=== PATIENT | male | born 1995 | race Caucasian/White ===

== ENCOUNTER 2020-06-12 13:44 | Emergency (ER) | payer BC, SELFPAY ==
[2020-06-12 13:46] VITALS: BP 160/89; PULSE 112; RESP 18; TEMP 36.6; O2SAT 97; BMI 32.7
--- NOTE | 2020-06-12 13:55 | ED.RN ---
pt in 1:1 continuous observation in triage awaiting ED room availability
--- NOTE | 2020-06-12 14:56 | ED.DCSUM_ITS ---
- ER Visit Summary Date of Service: 06/12/20 Chief Complaint: Depression with suicidal ideation History of Present Illness: The patient is a 24 M who presents with depression and suicidal ideation that has been getting progressively worse. Patient states he has been depressed over the last 4 years. Patient states his suicidal ideations became worse today. Patient states he wants to hurt other people so that they will hurt him and kill him. Patient states nothing particularly made this worse or made it better. Physical Examination: Vital signs are stable. Patient is afebrile. Patient is in no acute distress. Oral mucosa is pink and moist. Neck is supple. Trachea is midline. There is no JVD noted. Heart was regular rate and rhythm. Lungs are clear and equal bilaterally. Abdomen is soft. Bowel sounds are normal. There is no tenderness. There is no rebound or guarding noted. Skin is warm dry. Cranial nerves II through XII are intact. There are no focal motor or sensory deficits noted. Extremities are intact. There is no calf tenderness or edema. Patient does have a depressed mood and flat affect. Patient admits to suicidal ideation. Test Results: CBC shows a slight leukocytosis of 13.0. Basic metabolic profile was within normal limits. Serum alcohol level was normal. Urine tox urine was positive for amphetamines and cannabinoids. Emergency Department Course and Treatment: Patient was given a dose of Geodon here. Social work was in to evaluate the patient. Patient will be placed in a psychiatric facility. [place] slip was filled out. Patient will be transferred to [place]. Patient understood and was agreeable with the plan. All questions were answered. Disposition: Transfer to psychiatric facility Impression: Depression with suicidal ideation This note was generated with [employer] dictation software. It may contain incorrect words, spelling, and punctuation that were not noted in review of the chart prior to signing ED Disposition - Plan for ED Patient: Disposition: Psychiatric Hospital or Unit Diagnosis: Depression with suicidal ideation
[2020-06-12 15:04] LABS: Absolute Lymphocyte Count 2.62 X10^3/uL (0.83-4.51); Absolute Neutrophil Count 8.8 X10^3/uL (2.0-7.7); Basophil# 0.07 X10^3/uL; Basophil% 0.5 % (0-1); Eosinophil# 0.32 X10^3/uL; Eosinophils% 2.5 % (0-5); Hematocrit 47.3 % (40-54); Hemoglobin 15.5 g/dL (13.0-16.5); Lymphocyte # 2.62 X10^3/ul (4.0); Lymphocyte % 20.1 % (19-41); Mean Corp Hgb Conc 32.8 g/dL (32-36); Mean Corpuscular Volume 88.6 fL (80-94); Mean Platelet Vol. 11.4 fl (6.2-12.0); Monocyte# 1.11 X10^3/uL; Monocyte% 8.5 % (0-10); NRBC Flagged by Analyzer 0 % (0-5); Neutrophil # 8.84 X10^3/uL (2.7-7.7); Neutrophil % 67.9 % (47-70); Platelet Count 288 K/mm3 (150-450); RBC Distribution Width CV 12.7 % (11.6-14.6); RBC Distribution Width SD 41.8 fl (35.1-43.9); Red Blood Count 5.34 M/mm3 (4.6-6.2)
[2020-06-12 15:12] LABS: Anion Gap 7 (5-15); BUN 13 mg/dL (7-18); BUN/Creat Ratio 13.2 RATIO (10-20); Chloride 105 mmol/L (98-107); Creatinine, Serum 0.98 mg/dL (0.70-1.30); EST Glomerular Filtration Rate 98 mL/min (>60); Est Glom Filt Rate - Afr Amer 118 mL/min (>60); Estimated Creatinine Clearance 132.81 ml/min; Glucose 98 mg/dL (74-106); Potassium 3.8 mmol/L (3.5-5.1); Sodium Level 140 mmol/L (136-145)
[2020-06-12 15:25] VITALS: RESP 16
[2020-06-12 16:24] VITALS: RESP 16
[2020-06-12 16:33] LABS: Amphetamine Urine VISTA POSITIVE (<1000 ng/mL); Barbiturate Urine VISTA NEGATIVE (< 200 ng/mL); Benzodiazepine Urine VISTA NEGATIVE (< 200 ng/mL); Cocaine Urine VISTA NEGATIVE (< 300 ng/mL); Ecstacy Urine VISTA NEGATIVE (< 500 ng/mL); Methadone Urine VISTA NEGATIVE (< 300 ng/mL); PCP Urine VISTA NEGATIVE (< 25 ng/mL); THC Urine VISTA POSITIVE (< 50 ng/mL); Vista UDS pH Range 6
--- NOTE | 2020-06-12 16:37 | CM.ED ---
Social Work Consult: Suicidal Informant: Dr. Ackerman Chief Complaint: Patient states I can't keep doing this. Patient states to feel disappointed. Marital/Social History: Single. Living Situation: Has own apartment. Currently living with parents since yesterday to keep me safe. Support/Resources: Active in counseling and psychiatric services through [facility]. Patient reports parents are supportive. History: None Education/Employment: [employer] (full-time). Patient denies any issues/concerns with comprehension or understanding. Mental Health Treatment/History: Depression, Anxiety, ADHD. Reports to take medications that helps. Patient denies any history of inpatient psychiatric placement. Triggers/Stressors: People in general. Coping Skills: Moved in with parents, smoking THC, taking a warm shower. Abuse issues: None Legal Issues: None Substance Abuse Hx: Meth, Acid, THC. Patient states to have last used THC this morning. Acid was a week ago and Meth was 3 days ago. Patient states to use substances for fun and shit. Denies any active substance abuse supports/resources. Patient does have a sponsor that was self appointed, family friend. Risk to Self/Others: Patient reports active suicidal thoughts with plan to have a naval aircrewman helicopter kill me. Patient states I will just go on a rampage. Patient denies any aggression towards others. Patient denies any homicidal thoughts/plans/intents. Patient states history of self harming through burning self, hitting self, and stabbing self in leg with a pencil or fork to feel something else. Mental Status Exam: A&Ox3 Appearance/General Behavior: Calm. Clean. Mood/Affect: Depressed. Communication Pattern: Responds to questions. Thought Process: Denies hallucinations or paranoia. Assessment: Met with patient in room. Introduced self and social psychologist role. Patient agreeable to speaking with this social psychologist. Patient states to be having a difficult time keeping it together. Patient states to feel at risk to self and others and to be having active thoughts of being better of . Patient states to be having a difficult time managing suicidal thoughts/plans. Patient states to feel like a disappointment and that others are also disappointing patient. Patient states to have came to the hospital seeking help. Active support and listening provided. Collaborating with Dr. Ackerman. Plan is to facilitate placement. Raiza HORN, TRISTIN
--- NOTE | 2020-06-12 17:32 | CM.ED ---
Social Work Telephone call to [facility]. Referral placed. Clinical information faxed. Pending review. Raiza HORN, TRISTIN
[2020-06-12 17:46] VITALS: BP 155/79; PULSE 74; RESP 16; O2SAT 98
[2020-06-12 18:28] VITALS: RESP 16
--- NOTE | 2020-06-12 19:14 | CM.ED ---
Social Work Telephone call from [place], [place]. Patient has been accepted. Patient to admit to the [facility] and is being admitted by Dr. Ellis. Nurse to call report to [phone]. Updated medical team, patient, and patient mother. Howard Slip faxed. Raiza HORN, TRISTIN
[2020-06-12] MEDS: Ziprasidone IM 20 MG/ML VIAL IM (19:26)
--- NOTE | 2020-06-12 20:23 | ED.RN ---
TRANSPORT ESTABLISHED AT 1923, AND GIVEN A 75 MINUTE ETA. 2009 TRANSPORT CALLED TO DELAY PICKUP BY ANOTHER 90 MINUTES. THEY WERE ADVISED OF THE NEED TO GET OTHER TRANSPORT
[2020-06-12 22:17] VITALS: BP 154/90; PULSE 14; PULSE 70; RESP 14; TEMP 37.7; O2SAT 100
== END 2020-06-12 22:24 ==
PROVIDERS: Emergency Provider Emergency Medicine
DX: F32.9 Major depressive disorder, single episode, unspecified (principal); R45.851 Suicidal ideations; R45.850 Homicidal ideations; J34.89 Other specified disorders of nose and nasal sinuses; J02.9 Acute pharyngitis, unspecified; R11.2 Nausea with vomiting, unspecified; M54.2 Cervicalgia; M54.9 Dorsalgia, unspecified; R51 Headache; F90.9 Attention-deficit hyperactivity disorder, unspecified type; Z79.899 Other long term (current) drug therapy; F17.200 Nicotine dependence, unspecified, uncomplicated
CPT/HCPCS: 80048; 80307; 80320; 85025; 96372; 99284; G0480; J3486

== ENCOUNTER 2022-06-05 19:33 | Emergency (ER) | payer MEDICAID, SELFPAY ==
[2022-06-05 19:34] VITALS: BP 176/92; PULSE 101; RESP 16; TEMP 36.8; O2SAT 97; BMI 29.9
--- NOTE | 2022-06-05 20:01 | EKG12_ITS ---
Test Reason : [facility] [place] Blood Pressure : / mmHG Vent. Rate : 083 BPM Atrial Rate : 083 BPM P-R Int : 158 ms QRS Dur : 098 ms QT Int : 346 ms P-R-T Axes : 040 048 000 degrees QTc Int : 406 ms Normal sinus rhythm Normal ECG Confirmed by MAURICIO HICKS, SUN ([id number]), editor in chief newspaper GLENN QUIGLEY ([id number]) on 06/06/2022 9:16:27 AM Referred By: Confirmed By:SUN MARTÍNEZ MD
[2022-06-05 20:15] LABS: Absolute Lymphocyte Count 2.83 X10^3/uL (0.83-4.51); Absolute Neutrophil Count 9.1 X10^3/uL (2.0-7.7); Basophil# 0.06 X10^3/uL; Basophil% 0.5 % (0-1); Eosinophil# 0.18 X10^3/uL; Eosinophils% 1.4 % (0-5); Hemoglobin 14.9 g/dL (13.0-16.5); Lymphocyte # 2.83 X10^3/ul (0.83-4.51); Lymphocyte % 21.9 % (19-41); Mean Corp Hgb Conc 33.9 g/dL (32-36); Mean Corpuscular Hgb 29.6 pg (27.0-32.0); Mean Corpuscular Volume 87.3 fL (80-94); Mean Platelet Vol. 11.7 fl (6.2-12.0); Monocyte# 0.75 X10^3/uL; Monocyte% 5.8 % (0-10); NRBC Flagged by Analyzer 0 % (0-5); Neutrophil # 9.06 X10^3/uL (2.7-7.7); Neutrophil % 70.1 % (47-70); Platelet Count 293 K/mm3 (150-450); RBC Distribution Width CV 12.9 % (11.6-14.6); RBC Distribution Width SD 40.8 fl (35.1-43.9); Red Blood Count 5.04 M/mm3 (4.6-6.2); White Blood Count 12.9 K/mm3 (4.4-11.0)
--- NOTE | 2022-06-05 20:19 | EDS_ITS ---
HPI HPI - Psych History of Present Illness Chief Complaint: Suicidal Informant: patient Narrative Narrative: 26-year-old male presenting to the emergency department with a chief complaint of depression. Patient states he has been in the mental health system for most of his life. He has been hospitalized before. He states that he is currently not taking any medications. He states that his [facility] Home Medications aripiprazole 15 mg tablet 30 mg PO DAILY 06/12/20 [History Last Taken Unknown] dextroamphetamine-amphetamine ER 20 mg 24hr capsule,extend release 20 mg PO DAILY 06/12/20 [History Last Taken Unknown] trazodone 50 mg tablet 150 mg PO QHS 06/12/20 [History Last Taken Unknown] gabapentin 300 mg capsule 1 cap PO BID 06/05/22 [History Last Taken Unknown] Allergy/AdvReac Type Severity Reaction Status Date / Time No Known Allergies Allergy Verified 06/05/22 19:38 Social History Smoking Status: Current every day smoker tobacco type: cigarettes EXAM Physical Exam Const Vital Signs: 06/05/22 19:34 Temperature 98.2 F Temperature Source Temporal Pulse Rate 101 H Respiratory Rate 16 Blood Pressure 176/92 H Blood Pressure Mean 120 Pulse Ox 97 Oxygen Delivery Method Room Air MDM MDM MDM Narrative Medical decision making narrative: Basic blood work was obtained. Alcohol negative COVID test negative. EKG is normal sinus rhythm. Patient is cleared for crisis evaluation. [place] slip and transfer form has been filled out. We will await crisis assistance in placement. Lab Data Attestation: I reviewed the patient's lab results. Labs: Laboratory Results - last 24 hr 06/05/22 06/05/22 06/05/22 19:56 19:56 19:56 WBC 12.9 H RBC 5.04 Hgb 14.9 Hct 44.0 MCV 87.3 MCH 29.6 MCHC 33.9 RDW Std Deviation 40.8 RDW Coeff of Bronson 12.9 Plt Count 293 MPV 11.7 Immature Gran % (Auto) 0.300 Neut % (Auto) 70.1 H Lymph % (Auto) 21.9 Webster % (Auto) 5.8 Eos % (Auto) 1.4 Baso % (Auto) 0.5 Absolute Neuts (auto) 9.1 H Absolute Lymphs (auto) 2.83 Nucleated RBC % 0 Sodium 142 Potassium 3.8 Chloride 108 H Carbon Dioxide 26.0 Anion Gap 8 BUN 13 Creatinine 1.26 Estim Creat Clear Calc 104.32 Est GFR (MDRD) Af Amer 87 Est GFR (MDRD) Non-Af 72 BUN/Creatinine Ratio 10.3 Glucose 106 Calcium 9.5 Total Bilirubin 0.20 AST 20 ALT 32 Alkaline Phosphatase 74 Total Protein 7.8 Albumin 4.3 Globulin 3.5 Albumin/Globulin Ratio 1.2 Urine Opiates Screen Urine Methadone Screen Ur Barbiturates Screen Ur Phencyclidine Scrn Ur Amphetamines Screen MDMA (Ecstasy) Screen U Benzodiazepines Scrn Urine Cocaine Screen U Cannabinoids Screen Ur Drug Screen Comment Ethyl Alcohol < 3.0 06/05/22 20:15 WBC RBC Hgb Hct MCV MCH MCHC RDW Std Deviation RDW Coeff of Bronson Plt Count MPV Immature Gran % (Auto) Neut % (Auto) Lymph % (Auto) Webster % (Auto) Eos % (Auto) Baso % (Auto) Absolute Neuts (auto) Absolute Lymphs (auto) Nucleated RBC % Sodium Potassium Chloride Carbon Dioxide Anion Gap BUN Creatinine Estim Creat Clear Calc Est GFR (MDRD) Af Amer Est GFR (MDRD) Non-Af BUN/Creatinine Ratio Glucose Calcium Total Bilirubin AST ALT Alkaline Phosphatase Total Protein Albumin Globulin Albumin/Globulin Ratio Urine Opiates Screen NEGATIVE Urine Methadone Screen NEGATIVE Ur Barbiturates Screen NEGATIVE Ur Phencyclidine Scrn NEGATIVE Ur Amphetamines Screen POSITIVE H MDMA (Ecstasy) Screen NEGATIVE U Benzodiazepines Scrn NEGATIVE Urine Cocaine Screen NEGATIVE U Cannabinoids Screen POSITIVE H Ur Drug Screen Comment Ethyl Alcohol EKG Initial EKG: Attestation: I personally reviewed and interpreted this EKG as follows: Comments: Normal sinus rhythm ventricular rate of 83 bpm Discharge Plan Triage Chief Complaint: Suicidal ED Provider: Yuan Nava Dx/Rx/DC Orders Clinical Impression: Depression, Depression with suicidal ideation Prescriptions: No Action trazodone 50 MG tablet 150 mg PO QHS dextroamphetamine-amphetamine 20 MG capsule,extended release 24hr 20 mg PO DAILY aripiprazole 15 MG tablet 30 mg PO DAILY gabapentin 300 mg capsule 1 cap PO BID Label Comments: TAKE 1 CAPSULE BY MOUTH TWICE DAILY Primary Care Provider: Care Physician,No Primary Referrals: Care Physician,No Primary [Primary Care Provider] - Disposition Disposition: Psychiatric Hospital or Unit
[2022-06-05 20:34] LABS: ALB/GLOB Ratio 1.2 RATIO (0.9-2.4); AST(SGOT) 20 U/L (15-37); Alanine Aminotransfer ALT/SGPT 32 U/L (16-61); Albumin, Serum 4.3 g/dL (3.2-5.0); Alkaline Phosphatase 74 U/L (45-117); Anion Gap 8 (5-15); BUN 13 mg/dL (7-18); BUN/Creat Ratio 10.3 RATIO (10-20); Calcium,Total 9.5 mg/dL (8.5-10.1); Chloride 108 mmol/L (98-107); Creatinine, Serum 1.26 mg/dL (0.70-1.30); EST Glomerular Filtration Rate 72 mL/min (>60); Est Glom Filt Rate - Afr Amer 87 mL/min (>60); Estimated Creatinine Clearance 104.32 ml/min; Globulin 3.5 g/dL (2.2-4.2); Glucose 106 mg/dL (74-106); Potassium 3.8 mmol/L (3.5-5.1); Protein, Total 7.8 g/dL (6.4-8.2); Sodium Level 142 mmol/L (136-145)
[2022-06-05 20:41] LABS: Alcohol, Blood (Medical)-Serum < 3.0 mg/dL
[2022-06-05 20:49] LABS: Amphetamine Urine VISTA POSITIVE (<1000 ng/mL); Barbiturate Urine VISTA NEGATIVE (< 200 ng/mL); Benzodiazepine Urine VISTA NEGATIVE (< 200 ng/mL); Cocaine Urine VISTA NEGATIVE (< 300 ng/mL); Ecstacy Urine VISTA NEGATIVE (< 500 ng/mL); Methadone Urine VISTA NEGATIVE (< 300 ng/mL); PCP Urine VISTA NEGATIVE (< 25 ng/mL); THC Urine VISTA POSITIVE (< 50 ng/mL); Vista UDS pH Range 6
--- NOTE | 2022-06-05 20:59 | NURSING ---
Addendum entered by Lizette Naranjo 06/05/22 22:15: HAS BEEN REFERRED TO [facility] Original Note: CRIS[facility] CALLED IN, HE WAS [facility]LI[facility]. HE IS JUST TO BE MEDICALLY CLEARED BEFORE PLACEMENT. FAXED OVER CHART AND RECORD AT 2100.
--- NOTE | 2022-06-05 23:35 | ED.RN ---
CHARGE NURSE CALLED INTO ROOM BECAUSE PATIENT UPSET AT THIS TIME ABOUT SITTER FOLLOWING HIM TO THE BATHROOM. PATIENT REFUSING TO TALK TO NURSE FOR AWHILE UPON ENTERING THE ROOM. PATIENT ADVISED THIS THE POLICY AND THAT SHE IS JUST DOING WHAT SHE HAS TOO. PATIENT DOES NOT AGREE AND ARGUMENTATIVE WITH NURSING STAFF. HRO ADVISED AT THIS TIME
--- NOTE | 2022-06-05 23:37 | ED.RN ---
[facility] CALLED AND DENIED PATIENT AT THIS TIME DUE TO INSURANCE
[2022-06-06] VITALS (17 sets, daily range): BP systolic 135–166; BP diastolic 62–99; PULSE 64–90; RESP 14–20; TEMP 36.5; O2SAT 95–98
[2022-06-06] MEDS: traZODone 50 MG Tablet 150 MG PO ×2 (06:57→21:05)
[2022-06-06] MEDS: Gabapentin 300 MG Capsule PO ×2 (10:49→21:05)
[2022-06-06] MEDS: ARIPiprazole 10 MG Tablet 30 MG PO (10:49)
--- NOTE | 2022-06-06 11:07 | ED.RN ---
Addendum entered by Jenny Schmidt 06/06/22 11:25: Also notified patient of pharmacy request for home Adderall as it is non-formulary and unable to obtain at [facility]. Original Note: Patient angry at this nurse, refuses to state name and birthday after several attempts but then cooperates after the stating the inability to medicate (first contact with this patient) and therapeutic communication given. Reaffirmed policies to this patient regarding identification by staff.
--- NOTE | 2022-06-06 11:24 | ED.RN ---
Meal tray given patient denied requesting or wanting food.
--- NOTE | 2022-06-06 12:04 | CM.ED ---
Addendum entered by Poly Monroe 06/06/22 12:51: Patient's mother asked to speak to this va underwriter. She said that patient has no insurnce. She inquired as to how to enroll on medicaid. KHAI discussed with her that patient will need facility that accepts medicaid. KHAI noted that on face sheet it stated Medicaid. KHAI spoke to Uyen in Medicaid. Patient is a self pay. Uyen said that the pattern clerk did not unclick the button. Patient is self pay. KHAI called Rossi at [facility] and advised patient is self pay. Rossi said that patient was listed as medicaid on their paperwork. [facility]. Poly GLEZ Original Note: [facility] called [facility] and left voice mail for Ramona to call this va underwriter. KHAI met with patient. Patient is agitated and said I am sure you are not going to listen to me. KHAI explained that we are looking for psych placement but as patient has medicaid it has to be a facility attached to a hospital. Patient said I don't have medicaid.. you guys are completing paperwork and indicated he wanted to talk to his mom. Patient again voiced he had no medicaid. KHAI was advised by Ramona that patient was denied at [facility].She will start calling around for placement. KHAI updated DEANA Alvarado regarding this matter. Patient continues to be paranoid. Poly GLEZ
--- NOTE | 2022-06-06 13:32 | ED.RN ---
Previous nicotine patch had fallen off, new applied. Mom left to pickup patients own Adderall
[2022-06-06] MEDS: DEXTROAMPHETAMINE AMPHETAMINE 20 MG PO (14:14)
--- NOTE | 2022-06-06 14:14 | ED.RN ---
Mother brought all of patients home medications in and had left. Pt was given home Adderall 20mg capsule at this time.
--- NOTE | 2022-06-06 15:23 | CM.ED ---
KHAI received DORI for patient to sign so information could be provided to his mother. KHAI met with patient and patient signed DORI. DORI was [facility]ed back to [facility]. KHAI received call from Rossi, at [facility]. Patient has been referred to [facility]. Rossi advised that she had faxed a DORI for patient to sign. KHAI stated that patient had signed DORI and it had been faxed back. KHAI asked Rossi to fax the crisis assessment to the ED so it could be put in patient's chart. KHAI attempted to update patient however, he was asleep. KHAI received crisis assessment for patient and it was placed in patient's chart. Poly GLEZ
--- NOTE | 2022-06-06 19:22 | CM.ED ---
SW Note KHAI called Rossi at [facility]. She said that she refaxed the referral to [facility]. [facility] said that they would have results in 1/2 hour. KHAI updated patient and patient's mother. KHAI updated railroad surveyor. Poly GLEZ
[2022-06-06] MEDS: LORazepam 1 MG Tablet PO (20:07)
[2022-06-07] VITALS: RESP 16; O2SAT 97
[2022-06-07] MEDS: Ibuprofen 200 MG Tablet 600 MG PO (01:11)
[2022-06-07 01:12] VITALS: BP 138/89; PULSE 78; RESP 16; O2SAT 96
[2022-06-07 01:15] VITALS: BP 138/89; PULSE 78; RESP 16; O2SAT 96
== END 2022-06-07 01:40 ==
PROVIDERS: Emergency Provider Emergency Medicine; Visit Provider Emergency Medicine
DX: F32.A Depression, unspecified (principal); R45.851 Suicidal ideations; F17.210 Nicotine dependence, cigarettes, uncomplicated; Z79.899 Other long term (current) drug therapy
CPT/HCPCS: 36415; 80053; 80307; 82077; 85025; 87811; 93005; 99285

== ENCOUNTER 2022-06-30 09:00 | Outpatient (RCR) | payer MEDICAID, SELFPAY ==
--- NOTE | 2022-06-30 09:05 | BH.SGPN.GN ---
Behaviors/Verbalizations/Mental Status: [] Eye contact is good. Motor activity is appropriate. Appearance is casual. Speech is Appropriate. Mood is anxious. Affect is congruent. Thoughts are linear and logical. No evidence of psychosis. Reviewed daily check in sheet and no reports of suicidal ideations or intent. Client Response/Progress/Benefit: [] Pt participated when prompted. Attentive. Daily symptom tracker notes 3/5 for agitation and depression. Today was pt?s first day in IOP. He briefly shared a little about himself and states that he hopes to ?learn better ways to control my emotions? and to ?stop losing jobs due to my mental health?. No progress noted as this is pt?s first day. Benefited from group support and encouragement. Will continue in IOP to prevent decompensation/re-admission, increase healthy coping, and improve functioning Narrative Note: []
--- NOTE | 2022-06-30 10:10 | BH.SGPN.GN ---
Behaviors/Verbalizations/Mental Status: []Pt alert and oriented, casually dressed and groomed. Eye contact good. Motor activity appropriate. Speech within normal limits. Affect constricted, mood depressed and anxious. Thoughts linear, logical, no signs of hallucinations or delusions. Client Response/Progress/Benefit: []Pt was an active participant in group discussions and activity. Attentive during psychoeducation. Pt along with peers were able to identify several negatives on the picture given to the group. Pt and peers also identified positives in the picture and made the connect that finding positives is much more difficult. Interactive discussion on the definition of perspective, how perspective is formed, and why perspective is important in treatment. Pt along with peers also identified that perspective can either motivate and encourage treatment or be a barrier to receiving help. Pt?s first day and he reported the supportive environment and peers are helping pt feel more open to help. Will continue in IOP to prevent decompensation, gain healthy coping skills, and improve overall functioning. Narrative Note: []
--- NOTE | 2022-06-30 11:10 | BH.SGPN.GN ---
Behaviors/Verbalizations/Mental Status: []Pt alert and oriented, casually dressed and groomed. Eye contact good. Motor activity appropriate. Speech within normal limits. Affect constricted, mood depressed. Thoughts linear, logical, no signs of hallucinations or delusions. Client Response/Progress/Benefit: []Pt was attentive and contributed in small and larger group discussion. Pt completed strengths exploration worksheet and identified personal strengths to include: honesty, humor, and cooperation. Pt able to acknowledge how these strengths are helping her and can continue to help pt in her mental health journey. Pt shared that working to recognize these personal strengths more consistently will help improve pt?s mood and increase self-worth. Shared wanting to focus on fostering personal strengths by writing down his strengths and weaknesses to see what he can improve upon and give himself credit for. Benefited from identifying personal strengths and strategies for enhancing use of identified strengths. Pt to continue IOP tx to prevent decompensation, improve emotional regulation skills, and gain healthy coping skills. Narrative Note: []
--- NOTE | 2022-06-30 13:33 | BH.MDN_ITS ---
Multi-Disciplinary Note - Note 30-min Individual Time Started:: 12:10 Date: 06/30/22 Purpose of session/treatment goals addressed:: Reviewed current symptoms and adjustment to IOP level of care as this was his first day. Began to work on treatment plan goals. Eye Contact:: Good Motor Activity:: Appropriate Appearance:: Disheveled Speech:: Appropriate Mood:: Anxious Affect:: Congruent Thoughts:: Linear, Logical, No evidence of hallucinations/delusions noted Staff Interventions:: treatment planning Client Response:: Pt reports that his first day in IOP went well. Shared that the group topic was interesting and informative. His goals for IOP include; improving social skills and anger mgmt skills. Shared that his poor social awareness and anger have impacted his ability to consistently maintain employment. Was diagnosed with Asperger's at an early age and most recently has been dx'd with Bipolar. His primary coping skills are to isolate. He reports that he also has trouble masking his emotions which has led to struggles with relationships both at home and work. When asked for an example he shared that when is angry or annoyed with someone I can't hide it and co- workers and family know something is wrong. Had trouble verbalizing this concern further. Another goal that he would like to work on is improving his self- esteem. He described he mood as all over with anger, happiness, anxiety, and depression occurring frequently throughout the day. Risks/Concerns:: No risks or concerns noted. Pt denies active suicidal ideations, plan, or intent. Denies SI since psychiatric admission on 06/05/22. Cam HI. Progress Toward Goals/Plan:: No progress noted as this was pt's first day in IOP. He reports that his depression and anxiety have improved since hospitalization on 06/05/22. Denies any SI, plan, or intent since d/c from psych unit. When asked about access to guns reports that I'm handing those over to my mom today states that he family prefers that he not have them. Encouraged him to follow through with handing guns over to mother. Will inform the team and follow up with him tomorrow. He was engaged during group today and appeared to be note-taking as well. Plan is to continue in [facility] to maintain safety, stabilize mood, and prevent decompensation/re-admission. Time Stopped:: 12:40
--- NOTE | 2022-06-30 14:16 | BH.COMM_ITS ---
Communication Note - Communication with Client Communication Note: Met with pt to complete initial paperwork. No significant changes to pre-admission screening. Completed [place] Suicide Screening. Low- moderate risk. Admits to thoughts of within the last month, but denies any active SI, plan or intent. Pt denies any SI since discharging from the hospital. No history of suicide attempts. Pt does have history of HI, but denies any currently. Pt reports he has access to guns at home, but he would give them to someone if I started to feel worse. Pt was encouraged to have mom lock up his guns and discussed reducing access to lethal means. Pt did not represent as an imminent threat to self or others. Future oriented and reports his beliefs/upbringing stop him for killing himself. Case discussed with Dr. Heller with plan to admit to IOP level of care with dx of F31.4
--- NOTE | 2022-07-01 10:50 | BH.SGPN.GN ---
Behaviors/Verbalizations/Mental Status: [] Client alert and oriented, casually dressed and groomed. Eye contact good. Motor activity appropriate. Speech within normal limits. Affect congruent, mood euthymic. Thoughts linear, logical, no signs of hallucinations or delusions. Client Response/Progress/Benefit: [] Client responded well to session, contributing to discussion and engaged during the activity. Group identified the benefits of change which included: personal growth, improving mental health, experiencing more, and better relationships. Worked with the group to identify barriers to change, which included: uncomfortable emotions such as anxiety and depression, lack of motivation, lack of energy, and confidence. Client participated along with group in activity where they identified and discussed the emotions related to change. Client participated in discussion on the change process and personal experiences with implementing change in past with indicating that change has been difficult for him. Benefited from increased awareness and understanding of emotions, benefits, and barriers related to change. Will continue IOP tx to continue to combat distortions that reinforce low self-esteem, anxiety, and depression and prevent decompensation. Narrative Note: []
--- NOTE | 2022-07-01 11:00 | BH.SGPN.GN ---
Behaviors/Verbalizations/Mental Status: [] Client alert and oriented, casually dressed and groomed. Eye contact good. Motor activity appropriate. Speech within normal limits. Affect congruent, mood euthymic. Thoughts linear, logical, no signs of hallucinations or delusions. Client Response/Progress/Benefit: [] Client responded well to session, attentive AEB participating in activity and providing input in group. Did well to process activity and work with group to relate the strategies used to overcome barriers in the activity to managing change in own life. Client shared a change they would like to make is being more positive on a consistent basis. Client stated currently reports being in the contemplation stage. Identified goal to work on to achieve change behavior would be writing down two things he is grateful each day. Appeared to benefit from identifying a small goal to work towards. Client will continue IOP tx to prevent decompensation, gain healthy coping skills, and improve daily functioning. Narrative Note: []
--- NOTE | 2022-07-01 13:06 | BH.MTP_ITS ---
Master Treatment Plan - Patient Information Program Physician:: Dr. Shaffer Primary Therapist:: Sulma Cartagena, [facility] - Psychiatric Diagnoses Psychiatric Diagnoses:: 1. Bipolar 1 disorder, most recent episode depression, severe with psychosis (F31.5). 2. Generalized anxiety disorder. 3. ADHD. 4. Autism spectrum disorder. 5. Marijuana use disorder, sober for 2 weeks. 6. Methamphetamine and cocaine use disorder, sober for 5 years Diagnosis Code(s):: F31.5 - Estimated LOS Estimated LOS (in weeks):: 6 Problem/Goal #1 - Problem/Goal #1 Stated Goal:: Client will increase mood stability and decrease depressive symptoms, hopelessness, and anger/irritability due to Bipolar I through Intensive Outpatient Program. Description of Barriers: Potential barriers to treatment include emotion dysregulation, hx of anger outbursts, limited support system, hx of substance use (recent sobriety), and hx of medication noncompliance. Functional Impact: The patient is a 26-year-old with history of anxiety, bipolar 1 disorder, ADHD and autism spectrum disorder who was referred to the [facility] IOP program by [facility] after being admitted to the psychiatric unit for suicidal ideation and paranoia from June 05 to June 13, 2022. Client?s mental health has impacted client?s ability to maintain employment, often getting fired due to his anger outbursts. Prior to psychiatric admission he was not taking care of himself, not taking care of his apartment, and spending majority of his day smoking marijuana; reported using 15-20 bowls per day. - Objectives Objective #1 Stated Objective: Client will learn and utilize 2-3 healthy coping strategies to manage depressive symptoms as shown by reduced DSM-5 cross-cutting symptom measure score. Interventions: Therapist will utilize CBT techniques to assist client with understanding the connection between thoughts, feelings and behaviors. Education will be provided on behavioral activation. Therapist will assist client in learning internal coping strategies to manage depressive symptoms, along with helping client identify triggers. Discharge Criteria: Client will have achieved this goal when can verbalize and has practiced at least 2 healthy coping strategies that successfully manage depressive symptoms. Target Date: 08/11/22 Review Date: 07/23/22 Objective #2 Stated Objective: Client will identify 5 physical warning signs of anger and 5 ways to calm and manage anger.? Interventions: Therapist will provide worksheet to track situations, thoughts, feelings, and actions associated with moments of anger, irritation, or disappointment. Through individual therapy and group work will help client explore warning signs to anger and ager management strategies. Discharge Criteria: Client will have met this goal when can identify at least 5 physical warning signs of anger and reports decreased anger outbursts. Target Date: 08/11/22 Review Date: 07/23/22 Problem/Goal #2 - Problem/Goal #2 Stated Goal:: Stabilize anxiety level while increasing ability to function on a daily basis. Description of Barriers: Potential barriers to treatment include emotion dysregulation, hx of anger outbursts, limited support system, hx of substance use (recent sobriety), and hx of medication noncompliance. Functional Impact: The patient is a 26-year-old with history of anxiety, bipolar 1 disorder, ADHD and autism spectrum disorder who was referred to the [facility] IOP program by [facility] after being admitted to the psychiatric unit for suicidal ideation and paranoia from June 05 to June 13, 2022. Client?s mental health has impacted client?s ability to maintain employment, often getting fired due to his anger outbursts. Prior to psychiatric admission he was not taking care of himself, not taking care of his apartment, and spending majority of his day smoking marijuana; reported using 15-20 bowls per day. - Objectives Objective #1 Stated Objective: Client will learn and implement 2-3 calming skills to reduce overall anxiety and manage anxiety. Interventions: Therapist and group sessions will help client identify physiological warning signs of anxiety, increase awareness of thoughts that increase anxiety, and identify behaviors that reinforce anxious symptoms. Group and individual counseling will teach client calming skills to help manage anxious symptoms. Discharge Criteria: Client will have achieved this goal when can verbalize at least 2 calming skills and reports skills successfully help reduce anxious symptoms. Target Date: 08/11/22 Review Date: 07/23/22 Objective #2 Stated Objective: Pt will decrease anxious symptoms AEB pt?s score on the DSM 5 cross-cutting measure improve pt?s daily functioning. Interventions: Through groups and individual therapy, pt will be provided education about anxiety?s impact on body and common physiological reaction to anxiety. Therapist will teach pt appropriate breathing techniques and build healthy coping skills to manage daily anxieties. Discharge Criteria: Pt will have met this goal when pt?s score on the DSM 5 cross cutting measure for anxiety has been decreased and per pt?s report daily functioning has improved. Target Date: 08/11/22 Review Date: 07/23/22
--- NOTE | 2022-07-01 14:58 | BH.MDN ---
Multi-Disciplinary Note - Note 60-min Individual Time Started:: 12:00 Date: 07/01/22 Purpose of session/treatment goals addressed:: Purpose of session was to assess client's current symptoms and stressors. Additional focus was on solidifying treatment goals for IOP. Eye Contact:: Fair Motor Activity:: Appropriate Appearance:: Disheveled Speech:: Appropriate Affect:: Constricted Thoughts:: Linear, Logical, No evidence of hallucinations/delusions noted Staff Interventions:: CBT techniques, rapport building, strengths perspective, treatment planning, other - identifying anger triggers Client Response:: Client reported he has been struggling with increased depression, anger that goes 0 to 100, paranoia, anxiety and limited social skills. Client stated he has been to counseling in the past and has learned breathing skills, leaving negative situation, challenging perspective, and some skills with challenging negative thinking. Client reported many of his healthy skills haven't been working. Client stated he needs to learn how to manage his anger more effectively. Client reported his anger issues are impacting ability to maintain friendships and keeps getting fired from jobs. Client stated at his various jobs sometimes he will have overt anger outbursts and other times he will be more passive aggressive and both ways have led to termination from his jobs. Client identified anger triggers to be: loud noises, feeling hot, others yelling, feeling disrespected, being bullied, and seeing others being bullied. Client stated there are times in which he has felt like his co-workers were talking about him but did not have evidence to support these thoughts. Client reported while in the program he wants to learn to better manage his anger, depression and anxiety. Client stated anxiety has been making it more challenging to go to stores. Client stated he feels like others are looking at him or judging him. Client recognizes need to learn ways to manage his emotions in the moment. Risks/Concerns:: Denies suicidal/homicidal ideation, plan or intention to date. Progress Toward Goals/Plan:: No progress observed given second day in IOP. Session focused on identifying treatment goals for IOP. Client to continue IOP to increase emotion regulation, improve view of self, and prevent decompensation. Time Stopped:: 13:00
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
[2022-07-02 10:58] VITALS: BP 148/85; PULSE 77
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
--- NOTE | 2022-07-02 12:11 | BH.DR.ITP ---
Initial Treatment Plan Patient Information Visit Information: ADMISSION DATE: EXPECTED LOS: 4-6 weeks Problems/Symptoms Problem #1:: Depression Symptom:: Sadness, worthlessness, decreased concentration, guilt, recent suicidal ideation, recent anhedonia Problem #2:: Anxiety Symptom:: Panic attacks, worry, rumination
--- NOTE | 2022-07-02 13:00 | BH.MDN_ITS ---
Multi-Disciplinary Note - Note 30-min Individual Time Started:: 12:05 Date: 07/02/22 Purpose of session/treatment goals addressed:: Purpose of session was to address goal 1 from MTP. Eye Contact:: Good Motor Activity:: Appropriate Appearance:: Casual Speech:: Appropriate Mood:: Dysthymic Affect:: Constricted Thoughts:: Linear, Logical, No evidence of hallucinations/delusions noted Staff Interventions:: psychoeducation on: - cognitive triangle, CBT techniques, rapport building, strengths perspective, taught coping skills Client Response:: Client reported he believes it would be helpful to see his healthy friends more often. Client stated he has a couple close friends that he has known since high school that he would consider to be positive influences for him. client reported he had to cut off a lot of his previous friends because they were bad influences. Client reported he used to hang out with a group of people in 2018 in which they would do meth together. Client stated doing meth was extremely unhealthy for him and increase his dark thinking and increased homicidal thoughts at the time. Client reported he still has homicidal and dark thoughts currently but stated it's nothing he would actually carry out. Client stated he needs to make more effort to see his current group of friends. Client stated he has a girlfriend that lives in [place] and he can't see her very often due to gas being too expensive. Reported he has been dating her for 6 years. Client reported he does find it difficult that he can't seem to connect often with his healthy friends. Client stated additional stressor was the passin g of his step-dad three years ago. Client reported he was close to his step-dad and it has been hard not having him around. Client connected with psychoeducation about cognitive triangle. Client stated he could connect how the way he thinks, feels, and behaves can reinforce or cause more problems for himself. Client connected with education about how his distorted thoughts can cause increased anger responses and keep him stuck in the anger loop. Client reported seeing the triangle visually has really helped him connect how he keeps repeating the same cycle and making things worse for himself. Client stated he would like to work on putting the triangle into practice by being more mindful of his reactions and trying to break the cycle. Risks/Concerns:: denies current active suicidal/homicidal ideation, plan or intention to date. future focused. Progress Toward Goals/Plan:: Progress limited. Client continues to struggle with anger outbursts and impulsivity when feels like he was wronged. Client did connect with education about connection between thoughts, feelings and behaviors. Recognizes if he can't challenge his thoughts or change his behavior then he will continue to stay stuck. Client to continue IOP to improve emotion regulation, challenge distorted thoughts and prevent decompensation. Time Stopped:: 12:35
== END 2022-07-02 23:59 ==
LOC: BHIOP 09:00
PROVIDERS: Visit Provider Psychiatry & Neurology Psychiatry
DX: F31.5 Bipolar disorder, current episode depressed, severe, with psychotic features (principal); F41.1 Generalized anxiety disorder; F90.9 Attention-deficit hyperactivity disorder, unspecified type; F12.99 Cannabis use, unspecified with unspecified cannabis-induced disorder; F84.0 Autistic disorder; R45.851 Suicidal ideations; Z79.899 Other long term (current) drug therapy; F17.210 Nicotine dependence, cigarettes, uncomplicated
CPT/HCPCS: 90792; H2012; H2020; S9480; T1002; 90832; 90837

== ENCOUNTER 2022-07-03 07:45 | Outpatient (RCR) | payer MEDICAID, SELFPAY ==
[2022-07-03 00:51] VITALS: BP 148/85; PULSE 77
--- NOTE | 2022-07-03 09:00 | BH.SGPN.GN ---
Behaviors/Verbalizations/Mental Status: [] Eye contact is good. Motor activity is appropriate. Appearance is casual. Speech is Appropriate. Mood is depressed. Affect is flat. Thoughts are linear and logical. No evidence of psychosis. Reviewed daily check in sheet and no reports of suicidal ideations or intent. Client Response/Progress/Benefit: [] Pt participated at times during group discussions on healthy ways to improve sleep. Attentive. Daily symptom tracker notes 3/5 for anxiety and irritability; 2/5 for depression. Mental health wins include ?getting to be early?. Emotion for today is ?tired?. He continues to struggle with mood management around his mother and family. Easily frustrated by others which can led to negative automatic thoughts, intense emotions, and anger outbursts. Some progress noted. Will continue in IOP to prevent decompensation/re-admission, increase healthy coping, and improve functioning. Narrative Note: []
--- NOTE | 2022-07-03 14:34 | BH.MDN ---
Multi-Disciplinary Note - Note 45-min Individual Time Started:: 12:05 Date: 07/03/22 Time Stopped:: 12:50
--- NOTE | 2022-07-04 09:05 | BH.SGPN.GN ---
Behaviors/Verbalizations/Mental Status: [] Eye contact is good. Motor activity is appropriate. Appearance is casual. Speech is Appropriate. Mood is euthymic. Affect is full. Thoughts are linear and logical. No evidence of psychosis. Reviewed daily check in sheet and no reports of suicidal ideations or intent Client Response/Progress/Benefit: [] Pt participated at times during group discussions. Attentive. Daily symptom tracker notes 12/07 fo anxiety. Mental health wins is ?I didn?t have any confrontations yesterday?. States ?I?m feeling good and I?m accomplishing goals and errands?. He reports that his anger and how he responds to conflict has been very problematic for him in the past. He believes that his anger and poor communication styles are what are causing him to lose jobs which impacts his depression and independence. This appears to be why he places so much emphasis on ?not having any confrontations? yesterday. Progress noted per pt report. Benefited from group support, encouragement, and feedback. Will continue in IOP to maintain safety, increase healthy coping, and prevent decompensation. Narrative Note: []
--- NOTE | 2022-07-04 09:57 | BH.SGPN.GN ---
Behaviors/Verbalizations/Mental Status: []Pt alert and oriented, casually dressed and groomed. Eye contact good. Motor activity restless. Speech within normal limits. Affect constricted, mood content. Thoughts linear, logical, no signs of hallucinations or delusions. Client Response/Progress/Benefit: []Pt participated at times during the group discussion. Attentive during psychoeducation. Participated in experiential activity. Pt contributed during interactive discussion on the consequences of unhealthy expression of emotions.? Attentive while peers identified several consequences which included; pushing people away, ?exploding,? and losing relationships. Attentive during interactive discussion on common potholes to effectively communicating and pt identified personal ones such as lashing out and not knowing what to say. Pt was able to relate and make connections between the experiential activity and the overall topic, reported feeling anxious, but managing it well. Benefited from increased awareness of how stress and emotions can impact one's ability to communicate. Will continue in IOP to prevent decompensation, improve overall functioning, and improve emotional regulation skills. Narrative Note: []
--- NOTE | 2022-07-04 11:05 | BH.SGPN.GN ---
Behaviors/Verbalizations/Mental Status: []Pt alert and oriented, casually dressed and groomed. Eye contact good. Motor activity appropriate. Speech within normal limits. Affect constricted, mood anxious. Thoughts linear, logical, no signs of hallucinations or delusions. Client Response/Progress/Benefit: []Pt engaged in session AEB pt listening attentively to peers. Attentive during psychoeducation on 4 zones of regulation. Pt able to identify feelings and behaviors for each zone.? Pt identified coping skills one can use to support self in each zone. Pt stated belief that pt is in the yellow/green zone today as pt is in a good mood, but also a little anxious from therapy. Pt reports going home to relax and do things he enjoys will keep pt regulated today. Benefited from increased education on zones of regulation or stages of alertness for emotions and healthy coping skills to use for each zone. Pt will continue IOP tx to reduce negative thinking, improve mood stability, and increase emotional regulation skills. Narrative Note: []
--- NOTE | 2022-07-08 10:05 | BH.SGPN.GN ---
Behaviors/Verbalizations/Mental Status: [] Client alert and oriented, neatly dressed and groomed. Eye contact good. Motor activity appropriate. Speech within normal limits. Affect constricted, mood euthymic. Thoughts linear, logical, no signs of hallucinations or delusions. Client Response/Progress/Benefit: [] Client was an active participant in group discussions. Attentive during psychoeducation on 4 types of conflict styles (Competing, Collaborating, Avoiding, and Accommodating). Worked with group to define conflict and identify how conflict is helpful. With peers identified barriers to addressing or managing conflict which included: fear of upsetting others, avoidance, high emotions, and poor communication. Client believes he uses the avoidance and competing style the most. Client shared this style leads him to end up missing out and others typically don't respond well to him. Benefited from group due to increase insight and awareness of benefits to conflict, conflict styles, and obstacles to managing conflict. Will continue in IOP to utilize positive coping skills,increase overall functioning, and increase self worth. Narrative Note: []
--- NOTE | 2022-07-08 15:30 | BH.MDN ---
Multi-Disciplinary Note - Note 45-min Individual Time Started:: 10:10 Date: 07/08/22 Time Stopped:: 11:00
--- NOTE | 2022-07-09 11:15 | BH.SGPN.GN ---
Behaviors/Verbalizations/Mental Status: []Pt alert and oriented, casually dressed and groomed. Eye contact good. Motor activity appropriate. Speech within normal limits. Affect constricted, mood irritable. Thoughts linear, logical, no signs of hallucinations or delusions. Client Response/Progress/Benefit: []Pt participated at times during group discussions. Attentive during psychoeducation on the 4 A's of Coping with Stress (Avoid, Alter, Adapt, Accept). Participated in experiential activity in which group members had to utilize stress management skills in the moment. Pt agreed with peers that their anxiety and sense of urgency was a barrier and pt worked well with peers to problem-solve. Pt engaged in review of the 4 A?s and picked wanting to work on accepting himself to improve self-esteem and reduce negative thinking. Benefited from processing in the moment stress management strategies and identifying new ways to cope with stress. Will continue in IOP to reduce intensity of symptoms, improve impulse control, and increase mood stability. Narrative Note: []
--- NOTE | 2022-07-09 12:01 | PCM.BH.PN_ITS ---
Progress Note Progress Note: History of Present Illness/Interim History: [] The patient is a 26-year-old single male with a history of anxiety, bipolar 1 disorder, ADHD and autism spectrum disorder who is seen in follow-up at the [facility] IOP program after being admitted to the psychiatric unit from June 05 to June 13, 2022. I last saw the patient 1 week ago and he since then has discontinued his gabapentin. He has been out of his Adderall since 5 or 6 days ago and feels that he is extremely fatigued with decreased concentration and feels sore with joint pain which she says happens when he does not take his Adderall. The patient had not had any anger outbursts until yesterday when he blew up on his mother and she blew up on him. He did not act violent in any way. Since he ran out of his Adderall it is hard for him to focus in group and pay attention and try to learn new skills. He does feel he is benefiting from the IOP program however. The patient denies any drug use except he used marijuana 1 time after he and his mom had a fight 5 days ago. He had only a few hits from a joint that his friend had. He denies any other drug use. His mood remains depressed and somewhat irritable. He denies passive thoughts of , suicidal ideation, homicidal ideation, plan for suicide, hallucinations or delusions. Current Psychiatric Medications: [] Prozac 10 mg p.o. daily (x5 weeks); Abilify 20 mg p.o. daily at bedtime (for several years); trazodone for sleep; Adderall Exar 20 mg p.o. every morning (ran out 5 days ago but has been on this for 14 years). Mental Status Examination: [] The patient is a large, tall 26-year-old male who appears normal for stated age and is casually dressed and groomed with good hygiene. He is ambulatory with a normal gait and alert and oriented to person place and time. He has no psychomotor agitation or retardation. He is cooperative during the evaluation. Eye contact is good and speech is normal rate and rhythm and fluent with no pressure. Mood is depressed and affect is constricted. Thought process is goal-directed and organized. Thought content: There is no evidence of hallucinations or delusions. There is no evidence of passive thoughts of , suicidal ideation, homicidal ideation or plan for suicide. Reality testing is intact. Intelligence is average. Impulsivity is moderate. Judgment is good. Insight is good. Diagnoses: [] 1. Bipolar 1 disorder, most recent episode depression, severe with psychosis (resolving, F31.5) 2. Generalized anxiety disorder 3. ADHD 4. Autism spectrum disorder 5. Marijuana use disorder 6. Methamphetamine and cocaine use disorder, sober for 5 years Plan: [] The patient will continue the IOP program at [facility] as the structure, support, education and group therapy will hopefully prevent worsening of the patient's symptoms which could require rehospitalization. He felt safe during the interview and if it anytime he does not feel safe he will let us know or go to the emergency room. The risks, options, possible complications and side effects of the medications were discussed with the patient and he understands and accepts these. Prescription was given for Adderall XR 20 mg p.o. every morning daily. The patient is unable to participate satisfactorily in the IOP program without his ADHD medication. He has been on this medication for 14 years and is only on 1 extended release dose every morning. Long discussion was had again about how the patient should avoid all drug use including marijuana at all times as the only 2 psych admits he has had of been due to using drugs besides being triggered by stressors. No other medication changes were made. Prescription was sent in for the Adderall Exar, #30 with 0 refills. I will see the patient in follow-up in 2 weeks and the patient will continue to follow-up with his outpatient providers.
--- NOTE | 2022-07-09 15:30 | BH.MDN ---
Multi-Disciplinary Note - Note 45-min Individual Time Started:: 09:05 Time Stopped:: 09:55
--- NOTE | 2022-07-10 09:05 | BH.SGPN.GN ---
Behaviors/Verbalizations/Mental Status: [] Client alert and oriented, casually dressed and groomed. Eye contact good. Motor activity appropriate. Speech within normal limits. Affect constricted, mood euthmic. Thoughts linear, logical, no signs of hallucinations or delusions. Reviewed client?s symptom tracker, no risk for suicidal ideation, plan, or intent as of 07/10/22 Client Response/Progress/Benefit: [] Client responded well to group by being attentive and participating in group and providing input to other group members. Reported that his emotion was numb. Client shared mental health win of getting a lot of errands done yesterday with feeling accomplished. Client reported how he is having a lot of family stressors with him and his mother not communicating effectively. Client seemed to benefit from input from other group members with positive communication. He will continue IOP tx to decrease cognitive distortions, reduce irritability, and increase overall functioning. Narrative Note: []
--- NOTE | 2022-07-10 10:10 | BH.SGPN.GN ---
Behaviors/Verbalizations/Mental Status: [] Client alert and oriented, casually dressed and groomed. Eye contact good. Motor activity appropriate. Speech within normal limits. Affect congruent, mood euthymic. Thoughts linear, logical, no signs of hallucinations or delusions. Client Response/Progress/Benefit: [] Client responded well to session, contributing to discussion and engaged during the activity. Group identified the things that keep them stuck and prevent taking action that included: lack of supports, relying on other's opinions of us, and fear of failure. Client identified a things he wants to get rid of and take control in his life are avoidance and negative self talk. Client shared that if this was not a obstacle for him, he would be more of a positive individual. Client reported he started changes so far by setting boundaries. Benefited from increased awareness and understanding of emotions, benefits, and barriers related to change. Will continue IOP tx to continue to prevent decompensation, gain healthy coping skills, and improve daily functioning. Narrative Note: []
--- NOTE | 2022-07-10 11:10 | BH.SGPN.GN ---
Behaviors/Verbalizations/Mental Status: []Pt alert and oriented, casually dressed and groomed. Eye contact good. Motor activity appropriate. Speech within normal limits. Affect constricted, mood agitated. Thoughts linear, logical, no signs of hallucinations or delusions. Client Response/Progress/Benefit: []Pt was an active participant in group discussion. Attentive during psychoeducation on the Zones of Change which included the comfort zone, learning zone, and danger zone. Pt along with peers participated in interactive discussion regarding behaviors, thoughts, and feelings associated with each zone. Participated in group activity in which they developed a plan to take action on something they wished to change. Pt chose to take action on get a better sleep schedule in which pt identified a SMART goal to ?plan to go to sleep at 9 or 10 and waking up early every day.? Identified supports that pt needed as less electronics at night, pleasant smells, taking medications, and sticking to a time. Benefited from increased self-aware of zones of change and developing an action plan. Will continue in IOP to increase impulse control, improve communication skills, and improve overall functioning. Narrative Note: []
--- NOTE | 2022-07-11 09:05 | BH.SGPN.GN ---
Behaviors/Verbalizations/Mental Status: [] Eye contact is good. Motor activity is appropriate. Appearance is disheveled. Speech is Appropriate. Mood is euthymic. Affect is congruent. Thoughts are linear and logical. No evidence of psychosis. Reviewed daily check in sheet and no reports of suicidal ideations or intent. Client Response/Progress/Benefit: [] Pt participated at times during the group discussion. Attentive. Daily symptom tracker notes 12/07 for anxiety. Emotion for today is ?optimistic?. Pt provided a very brief and concise check-in. States that his mental health wins included utilizing skills to ?get along with my brother?. Pt reports that this is progress as they often verbally argue or at least irritate each other. He also was able to complete a frustrating task without get overwhelmed or having an anger outburst. Progress noted per pt report. Benefited from group support, encouragement, and feedback. Will continue in IOP to maintain safety, prevent decompensation, and improve functioning to return to work. Narrative Note: []
--- NOTE | 2022-07-11 15:32 | BH.MDN ---
Multi-Disciplinary Note - Note 30-min Individual Time Started:: 11:20 Date: 07/11/22 Purpose of session/treatment goals addressed:: Purpose of session was to address goals 1 and 2 from MTP. Eye Contact:: Good Motor Activity:: Appropriate Appearance:: Casual Speech:: Appropriate Mood:: Euthymic Affect:: Congruent Thoughts:: Linear, Logical, No evidence of hallucinations/delusions noted Staff Interventions:: CBT techniques, strengths perspective, goal setting, taught coping skills, other - setting realistic goals Client Response:: Client reported yesterday his brother came over to his mom's house and they got along well with each other. client stated this is a big win for him because most times he hangs out with his brother it leads to a argument. Client reported they were able to work together to fix one of their moms equipment. Client reported he also got along well with his mom in the evneing. Client reported overall his mood was better yesterday. client receptive to breaking down goals for when he goes to his apartment over the weekend. Stated he'd like to focus on the living room and bedroom. Client reported he will get all the trash and clothes picked up in those two rooms. client stated if he gets that task complete he will get the trash and declutter his bathroom. Client reported he does think it will be helpful to have a more structured plan when he goes to clean his apartment so he doesn't become overwhelmed and leave. Client reported he would like to also ask a friend to come over to his aparmtnet to move the couch to the dumpster. Client reported for self-care he will play his video games and go on a mindful walk. Risks/Concerns:: Denies suicidal ideation, plan or intention to date. future focused. Progress Toward Goals/Plan:: Progress noted with client reporting ability to get alone with his brother which is something that is not usual for client. Additional positive as getting alone with his mom throughout the night and reporting improved mood yesterday and today. Client motivated to continue to work on cleaning his apartment, working with therapist to develop a plan to clean. Client is to continue IOP to continue working on conflict resolution, utilize healthy coping skills consistently and prevent decompensation. Time Stopped:: 11:50
--- NOTE | 2022-07-15 09:05 | BH.SGPN.GN ---
Behaviors/Verbalizations/Mental Status: [] Eye contact is good. Motor activity is appropriate. Appearance is disheveled. Speech is Appropriate. Mood is euthymic. Affect is congruent. Thoughts are linear and logical. No evidence of psychosis. Reviewed daily check in sheet and no reports of suicidal ideations or intent. Client Response/Progress/Benefit: [] Pt participated at times during the group discussion. Attentive. Daily symptom tracker notes 2/5 for anxiety and anxiety. Emotion for today is ?energetic?. Mental health wins include ?setting boundaries?. He elaborated on this briefly however his check was brief and concise as usual. Stressors include staying compliant with his medications and having a routine. Group provided some feedback and suggestions for medication compliance which was beneficial. Will continue in IOP to prevent decompensation, increase healthy coping, and improve functioning. Narrative Note: []
--- NOTE | 2022-07-15 10:05 | BH.SGPN.GN ---
Behaviors/Verbalizations/Mental Status: [] Client alert and oriented, causally dressed and groomed. Eye contact good. Motor activity appropriate. Speech within normal limits. Affect congruent, mood euthymic. Thoughts linear, logical, no signs of hallucinations or delusions. Client Response/Progress/Benefit: [] Client connected with topic of Anxiety and participated throughout, providing input and taking notes. Attentive during psychoeducation on different anxiety disorders and participated throughout interactive discussion defining anxiety and identifying cognitive and physiological symptoms of anxiety. Client asked questions and gave insight to group on the differences she notices when she is experiencing stress vs anxiety. Common cognitive symptoms identified by group included: ?what if thoughts?, all or nothing thinking, and predicting the future type thoughts. Physiological symptoms reported by patient included: increased heart rate and body twitching. Benefited from increased awareness and insight on anxiety and its impact. Will continue IOP tx to increase use of coping skills, identify and reduce use of cognitive distortions and increase overall functioning. Narrative Note: []
--- NOTE | 2022-07-15 11:05 | BH.SGPN.GN ---
Behaviors/Verbalizations/Mental Status: [] Client alert and oriented, casually dressed and neatly groomed. Eye contact good. Motor activity appropriate. Speech within normal limits. Affect congruent, mood euthymic, Thoughts linear, logical, no signs of hallucinations or delusions. Client Response/Progress/Benefit: [] Client was an active participant in group discussion and providing good insight to peers. Reviewed safety behaviors he engages in that reinforce anxiety. Attentive during psychoeducation on mindfulness coping skills and their impact on mental health wellness. The group worked together to brainstorm anxiety reduction strategies. Client shared menu of relaxation strategies he will utilize, which included positive self talk and standing on 1 foot. Client seemed to benefit from increased repertoire of anxiety reduction skills. Client will continue IOP tx to prevent decompensation, improve overall functioning, and gain healthy coping skills. Narrative Note: []
--- NOTE | 2022-07-16 09:05 | BH.SGPN.GN ---
Behaviors/Verbalizations/Mental Status: [] Eye contact is good. Motor activity is appropriate. Appearance is casual. Speech is Appropriate. Mood is depressed. Affect is flat. Thoughts are linear and logical. No evidence of psychosis. Reviewed daily check in sheet and no reports of suicidal ideations or intent. Client Response/Progress/Benefit: [] Pt participated at times during the group discussion. Attentive. Daily symptom tracker notes 3/5 for anger and 2/5 for anxiety. Mental health wins include ? I went to bed early?. Also reports utilizing self-care and managing his stress. He discussed the importance of managing his stress to avoid anger and anger outbursts. His check was brief and concise as usual as he does not like to share much. Progress noted per pt report. Benefited from group support, encouragement, and feedback. Will continue in IOP to maintain safety, prevent decompensation, and improve functioning. Narrative Note: []
--- NOTE | 2022-07-16 11:00 | BH.SGPN.GN ---
Behaviors/Verbalizations/Mental Status: []Pt alert and oriented, disheveled appearance-wearing PJs. Eye contact good. Motor activity appropriate. Speech within normal limits. Affect congruent, mood euthymic. Thoughts linear, logical, no signs of hallucinations or delusions. Client Response/Progress/Benefit: []Pt responded well to session as evidenced by Pt listening attentively to others and providing strategies during discussion.? Pt identified personal warning signs for crisis and gained further awareness of earliest warning signs. Pt created a crisis action plan to help Pt better manage warning signs for crisis. Pt?s action plan included warning signs such as inappropriate laughing, racing thoughts, and irritability. Pt?s coping skills included reflecting on stressors and taking a step back, 5 senses, engaging in interesting hobbies, and self-talk. Pt appeared to benefit from creating a crisis action plan and increasing self-awareness. Pt to continue IOP tx to increase distress tolerance and emotional regulation skills to manage anger, anxiety, and depression. Narrative Note: []
--- NOTE | 2022-07-16 15:33 | BH.MDN ---
Multi-Disciplinary Note - Note 45-min Individual Time Started:: 12:05 Date: 07/16/22 Purpose of session/treatment goals addressed:: Purpose of session was to address goals 1 and 2 from MTP. Eye Contact:: Good Motor Activity:: Appropriate Appearance:: Casual Speech:: Appropriate Mood:: Euthymic Affect:: Congruent Thoughts:: Linear, Logical, No evidence of hallucinations/delusions noted Staff Interventions:: thought challenging, CBT techniques, mindfulness skills, strengths perspective, goal setting Client Response:: Client reported he accomplished apartment goal of going at least two times, however stated second time he didn't stay as long. Client reported he still gets overwhelmed when is at his apartment but is starting to note progress. Client reported it has been helpful to focus on one room at a time. Client reported he cleaned his bedroom at his mom's house and got a lot of laundry done. Client stated he did have improved interactions with mom until yesterday. Client stated he got upset about his cat because was feeling anxious she would get hurt due to jumping off things. Client reported he was already feeling anxious and irritable then his mom brought up client needing to get a job. Client stated he did not handle the comment very well and went off on his mom. Client recognized he was in the wrong. Client reported he did apologize for his actions. Client stated despite having continued arguments with mom he can note treatment progress for himself. Client reported he is doing better with giving himself space when upset. Client reported he also is doing better with addressing conflict. Client stated he also hasn't been instigating situations with other people when feeling irritable or angry. Client reported goal is to go to his apartment to clean, mow his mom's yard, take boxes to mom's basement, do dishes and get more laundry done. Risks/Concerns:: Denies suicidal ideation, plan or intention to date. future focused. Progress Toward Goals/Plan:: Progress noted with client reporting continued follow through with goal of cleaning his apartment, stating improved ability of giving himself space when getting upset, and notes some progress with how he deals with conflict. Client recognizes needs continued work with conflict management but reports doing better with conflict then he had in the past. Client to continue IOP to continue use of healthy coping skills, challenge distorted thoughts, and prevent decompensation. Time Stopped:: 12:40
--- NOTE | 2022-07-17 09:05 | BH.SGPN.GN ---
Behaviors/Verbalizations/Mental Status: [] Eye contact is good. Motor activity is appropriate. Appearance is casual. Speech is Appropriate. Mood is depressed. Affect is flat. Thoughts are linear and logical. No evidence of psychosis. Reviewed daily check in sheet and no reports of suicidal ideations or intent. Client Response/Progress/Benefit: [] Pt participated at times during the group discussion. Attentive. Daily symptom tracker notes 3/5 for anger and 2/5 for anxiety. Mental health win was I did not engage in arguements with support. Emotion for today is gloomy. Reports increased isolation due to stressors and stressful people. Primary skill to manage anger yesterday was avoidance and isolation. Limited progress. Benefited from group support, encouragment, and feedback. Will continue in IOP to prevent decompensation/re-admission, increase healthy coping, and stabilize mood. Narrative Note: []
--- NOTE | 2022-07-17 10:15 | BH.SGPN.GN ---
Behaviors/Verbalizations/Mental Status: []Pt alert and oriented, casually dressed and groomed. Eye contact good. Motor activity appropriate. Speech within normal limits. Affect congruent, mood euthymic. Thoughts linear, logical, no signs of hallucinations or delusions. Client Response/Progress/Benefit: []Pt responded well to session AEB contributing to discussion, taking notes, and listening attentively to others. Group discussed the benefits of managed anger and anger as a secondary emotion. Pt shared perspective on negatives from acting out in anger as stress and more mental health issues.? Pt completed anger iceberg worksheet, reporting outward personal signs of anger as being hostile, lashing out, and fidgeting. Identified underlying emotions that contribute to anger including self-doubt, invalidation, and hurt. ?Appeared to benefit from increased knowledge of the underlying emotions that impact anger and increased self-awareness of the internal and external consequences of anger. Will continue IOP tx to improve emotional regulation skills, help pt gain coping skills to gain employment, and improve mood stability. Narrative Note: []
--- NOTE | 2022-07-22 09:00 | BH.SGPN.GN ---
Behaviors/Verbalizations/Mental Status: [] Eye contact is poor. Motor activity is appropriate. Appearance is casual. Speech is Appropriate. Mood is depressed. Affect is flat. Thoughts are linear and logical. No evidence of psychosis. Reviewed daily check in sheet and pt reports 1/5 for suicidal ideations and 0/5 for intent. Therapist notified. Client Response/Progress/Benefit: [] Pt participated when prompted. Daily symptom tracker notes 4/5 for depression and anxiety and 3/5 for self-harm urges. Unable to identify any mental health wins and reports being depressed. I went to an art festival and m[employer] this weekend and it was horrible referring to his mood and thoughts. He did not elaborate anymore on his depression or triggers except to say just certain people. Limited progress noted from group today. Will continue in IOP to prevent decompensation/-readmission, increase healthy coping skills, and improve functioning. Narrative Note: []
--- NOTE | 2022-07-22 15:34 | BH.MDN_ITS ---
Multi-Disciplinary Note - Note 60-min Individual Time Started:: 11:10 Date: 07/22/22 Purpose of session/treatment goals addressed:: Purpose of session was to address goals 1 and 2 from MTP. Eye Contact:: Fair Motor Activity:: Restless Appearance:: Casual Speech:: Appropriate Mood:: Anxious, Irritable Affect:: Constricted Thoughts:: Linear, Logical, No evidence of hallucinations/delusions noted Staff Interventions:: thought challenging, CBT techniques, mindfulness skills, strengths perspective, other - problem solving Client Response:: Client reported he was having an overall good weekend until Thursday evening when his brother made a comment towards client. Client stated when hanging out with his brother and other friends client was telling a story about how his brother had stood up for client in the past, but client reported the way he said the story came out wrong and it irritated his brother. Client reported his brother's comment angered client and led to days of rumination. Client stated he didn't sleep Thursday night because he was replaying what happened trying to figure out what he had done wrong. Client stated the issues continued the next day. Client reported he went to protestant with his mom which he stated made it worse. Client stated while listening to the sermon he started to think he isn't a son of god, more of a reject of the devil. Client receptive to thought challenge with help of therapist. Client recognizes needing to work on being able to recover instead of staying stuck in his head for days. Client able to identify positives from the weekend which included going to his apartment on Thursday and Thursday to clean. Client stated he did ask his brother for help with moving something out of his apartment. Client reported he mowed at his moms house, did dishes, and went outside his comfort zone by going to a art festival with his brother. Client stated he was able to enjoy himself at the festival. Client reported later in the evening after the festival is when things took a turn. client worked with therapist to identify how he could have interrupted his thought spiraling. Seemed to benefit from review of situation. Risks/Concerns:: Denies suicidal/homicidal ideation, plan or intention to date. future focsued. Progress Toward Goals/Plan:: Progress variable. Client continues to struggle with getting stuck in negative thoughts and having hard time using skills in the moment to reframe. Progress noted with client reporting stepping outside comfort zone, continuing to work on cleaning out apartment, and helping with chores around his moms house. Client to continue IOP to increase consistent skills, challenge distorted thoughts, and prevent decompensation. Time Stopped:: 12:10
--- NOTE | 2022-07-23 09:00 | BH.SGPN.GN ---
Behaviors/Verbalizations/Mental Status: []Pt alert and oriented, casually dressed and groomed. Eye contact good. Motor activity appropriate. Speech within normal limits. Affect constricted, mood dysthymic. Thoughts linear, logical, no signs of hallucinations or delusions. Reviewed pt?s symptom tracker, no risk for suicidal ideation, plan, or intent as of 07/23/22 Client Response/Progress/Benefit: [] Pt responded well to session, providing and receptive to feedback. Pt reports feeling hopeful this morning. Pt shared he used self-care yesterday by getting rest that he needed and he was able to stop himself from lashing out on his mother. Per pt's daily symptom tracker, pt's mood is better today and he is taking his medications. Pt reported he smoked yesterday which is a stressor, but overall he is doing better with using healthier coping skills. Appeared to benefit from reflecting on gains and connecting with peers. Will continue IOP tx to increase prolonged mood stability and increase emotional regulation skills. Narrative Note: []
--- NOTE | 2022-07-23 10:10 | BH.SGPN.GN ---
Behaviors/Verbalizations/Mental Status: []Pt alert and oriented, casually dressed and fair grooming. Eye contact good. Motor activity appropriate. Speech within normal limits. Affect congruent, mood euthymic. Thoughts linear, logical, no signs of hallucinations or delusions. Client Response/Progress/Benefit: []Pt was an engaged participant AEB listening to others and taking notes. Attentive during psychoeducation and participated in group activity. Participated in interactive group discussion on internal and external barriers to mental health progress. Pt described current reality as feeling like he is digging himself out of a hole that he has put himself in from his own behaviors. Reported desired reality is feeling more peaceful, less anger, and being able to manage stress better. Client shared personal barriers to desired realty include: isolation, poor boundaries, negative thinking, addiction, and hx of stopping medications. Benefited from increased awareness of current barriers to progress as well as current/desired realities. Pt will continue IOP tx to challenge distorted thoughts, improve emotion regulation and prevent decompensation.
--- NOTE | 2022-07-23 11:10 | BH.SGPN.GN ---
Behaviors/Verbalizations/Mental Status: []Client alert and oriented, casually dressed and groomed. Eye contact fair to good. Motor activity appropriate. Speech within normal limits. Affect constricted, mood dysthymic. Thoughts linear, logical, no signs of hallucinations or delusions. Client Response/Progress/Benefit: []Client engaged during activity and contributed some input as group brainstormed ideas on how to cope with internal barriers that keep clients stuck from moving towards goals. Able to identify barriers to desired reality. Client identified wanting to work on overcoming the barrier of poor boundaries by more consistently practicing verbalizing his needs to his supports. Shared that this will help him to feel a little more supported and avoid resentment. Benefited from group by identifying obstacles and solutions to desired reality. Client will continue IOP tx to reduce depression and improve use of healthy coping skills, as well as continue to improve mood management and overall functioning. Narrative Note: []
--- NOTE | 2022-07-23 11:38 | PCM.BH.PN ---
Progress Note Progress Note: History of Present Illness/Interim History: [] The patient is a 26-year-old single male with a history of anxiety, bipolar 1 disorder, ADHD and autism spectrum disorder who is seen in follow-up at the [facility] IOP program. I last saw the patient 2 weeks ago and at that time his Adderall prescription was renewed. The patient states that he is feeling much better since restarting his Adderall. His concentration and focus are better and he is more motivated and has more energy during the day. He also feels Col[place] overall. His mood is less depressed and feels better but he still has some days where he gets stuck in my head over issues mostly with the people who are his primary support. The patient still has occasional anger outburst with his mother only and this does not happen in other situations or with other people. He smoked marijuana once in the last 2 weeks and he has been using alcohol 2 shots or a few beers twice a week lately. He denies any other drug or substance use. The patient denies passive thoughts of , suicidal ideation, homicidal ideation, plan for suicide, hallucinations or delusions. Current Psychiatric Medications: [] Prozac 10 mg p.o. daily (x7 weeks); Abilify 20 mg p.o. daily at bedtime; Adderall XR 20 mg p.o. every morning (restarted 2 weeks ago) Mental Status Examination: [] The patient is a large, tall 26-year-old male who appears normal for stated age and is casually dressed and groomed with good hygiene. He is ambulatory with a normal gait and has no psychomotor agitation or retardation. He is cooperative and pleasant during the evaluation. Eye contact is good and speech is normal rate and rhythm and fluent with no pressure. Mood is mildly depressed and affect is minimally constricted. Thought process is goal-directed and organized. Thought content: There is no evidence of passive thoughts of , suicidal ideation, homicidal ideation, plan for suicide, hallucinations or delusions. Reality testing is intact. Intelligence is average. Impulsivity is moderate. Judgment is good. Insight is good. Diagnoses: [] 1. Bipolar 1 disorder, most recent episode depression, severe with psychosis (resolving, F31.5) 2. Generalized anxiety disorder 3. ADHD 4. Autism spectrum disorder 5. Marijuana use disorder 6. 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 He felt safe during the interview and if it anytime he does not feel safe he will let us know or go to the emergency room. The risks, options, possible complications and side effects of the medications were discussed with the patient and he understands and accepts these. No medication changes were made today. The patient states that he often forgets to take his Abilify at bedtime so he agrees to and request to take his Abilify in the morning. Discussed with the patient that this could make him tired but if it he tolerates it okay is he is welcome to take in the morning if this improves his compliance. He has an appointment this Thursday with his psychiatric provider and they will continue his Adderall Exar most likely. I will see the patient in follow-up in several weeks while in the IOP program and he will continue to follow-up with his outpatient providers.
--- NOTE | 2022-07-23 13:28 | BH.TPR ---
Treatment Plan Review Problem #1 Problem Name:: Mood instability Status of Goals:: Obj 1 - Problem #2 Problem Name:: Anxiety
--- NOTE | 2022-07-24 09:05 | BH.SGPN.GN ---
Behaviors/Verbalizations/Mental Status: [] Eye contact is good. Motor activity is appropriate. Appearance is casual. Speech is Appropriate. Mood is anxious. Affect is congruent. Thoughts are linear and logical. No evidence of psychosis. Reviewed daily check in sheet and no reports of suicidal ideations or intent. Client Response/Progress/Benefit: [] Pt was an active participant in group discussions. Attentive. Daily symptom tracker notes 3/5 for anxiety and anger, 2/5 for depression. Emotion for today is ?uneasy/ anxious?. Mental health wins were ?I got a lot done yesterday?. Briefly elaborated on the responsibilities that he completed. Shared that he also set boundaries and was assertive with support. An argument with support however led to significant ruminations causing him to not fall asleep till 3am. Continues to be reaction and have absolute thinking in most social situations, however, notes some progress as the argument did not escalate as much yesterday and it would have in the past. Also reports that he used ?unhealthy calming skills? which included smoking week. Benefited from group support, encouragement, and feedback. Will continue in IOP to prevent decompensation, stabilize mood, and increase healthy coping. Narrative Note: []
--- NOTE | 2022-07-24 10:10 | BH.SGPN.GN ---
Behaviors/Verbalizations/Mental Status: []Pt alert and oriented, casually dressed and groomed. Eye contact good. Motor activity appropriate. Speech within normal limits. Affect congruent, mood euthymic. Thoughts linear, logical, no signs of hallucinations or delusions. Client Response/Progress/Benefit: []Pt responded well to session AEB taking notes throughout and listening attentively to others. Pt was attentive throughout group activity identifying famous individuals and how they overcame failure to be successful. Pt helped group identify how fear of failure can impact mental health and relationships. Pt personally identified it leads to not reaching out to supports and giving up. ?Pt participated in experiential activity and pt made the connect of progress requires challenging assumptions. Appeared to benefit from increased knowledge of fear of failure. Pt showing progress in reduced severity of symptoms, but pt continues to struggle with managing anger. Will continue IOP tx to improve emotional regulation skills, combat distortions, and improve daily functioning. ? Narrative Note: []
--- NOTE | 2022-07-24 11:59 | BH.MDN ---
Multi-Disciplinary Note - Note 30-min Individual Time Started:: 11:05 Date: 07/24/22 Purpose of session/treatment goals addressed:: Purpose of session was to address goals 1 and 2 from MTP. Eye Contact:: Good Motor Activity:: Appropriate Appearance:: Casual, Other - grooming fair Speech:: Appropriate Mood:: Euthymic Affect:: Congruent Thoughts:: Linear, Logical, No evidence of hallucinations/delusions noted Staff Interventions:: thought challenging, CBT techniques, mindfulness skills, strengths perspective, goal setting, taught coping skills Client Response:: Client reported yesterday he did get into an argument with his mom because she made a comment to him that she is watching him now become an alcoholic. Client stated this triggered rage because he knows he is not an alcoholic. Client reported he had a lot of dark thoughts about himself, how he should cut his family out, and stop therapy because nothing helps. Client stated after some time passed he was able to talk with his mom and they agreed upon a few things together. Client reported his mom apologized for calling him an alcoholic because she knows that's not true. Client's mom agreed to be less critical and challenge her expectations of him. Client stated he expressed how he can't just change everything overnight and it will take time. Client reported he owned up to unhelpful comments he made during their argument. client stated he did use his belly breathing earlier in the day but once he got to rage he knew nothing was going to work. Client stated he needs to follow through with completing the anger journal provided by therapist. Stated this weekend his goal is to go to apartment 2 to 3 times this weekend to continue cleaning. Reported he will take a mindful walk and attempt to be more aware of his tone of voice. Risks/Concerns:: Denies suicidal/homicidal ideation, plan or intention to date. Progress Toward Goals/Plan:: Progress variable. Client continues to struggle with anger outbursts towards his mom. Client is showing improvement with recognizing when he is in the wrong and apologizing to his mom. Client also is able to recover quicker from his anger bursts. When first started program client would ruminate and being negative towards self for days after making a poor decision but recently has been able to challenge negative thoughts more often. Client continues to struggle with utilization of healthy calming skills in the moment. Client admits to not practicing the skills consistently. Client to continue IOP to increase consistent use of calming skills, continue to build confidence and prevent decompensation. Time Stopped:: 11:40
--- NOTE | 2022-07-24 15:35 | BH.MDN ---
Multi-Disciplinary Note - Note 30-min Individual Time Started:: 11:10 Date: 07/24/22 Time Stopped:: 11:40
--- NOTE | 2022-07-31 09:01 | BH.SGPN.GN ---
Behaviors/Verbalizations/Mental Status: []Pt eye contact fair, casually dressed, motor activity appropriate, speech normal rate and tone, mood euthymic, congruent affect, thoughts linear and intact, no evidence of delusions or hallucinations. Per client's symptom tracker he indicates no suicidal ideation, plan or intent. Client Response/Progress/Benefit: [] Client respond well to session as evidenced by him sharing thoughts and feelings and listening attentively to others. Client identified mental positive as establishing with a primary care doctor which is something he has put off for a long time. Additional mental positive as pulling his stocks out of his previous job which is also something he had been avoiding for a long time. Client identified a current stressor as doing a lot of self reflection the last few days which he stated can be stressful because he has to own up to decisions he has made that were not the best. Identified his emotion today as hopeful. Client to continue IOP to continue use of healthy coping skills, challenged distorted thoughts, and prevent decompensation. Narrative Note: []
--- NOTE | 2022-07-31 10:15 | BH.SGPN.GN ---
Behaviors/Verbalizations/Mental Status: []Eye contact is good. Motor activity is appropriate. Appearance is casual. Speech is Appropriate. Mood is euthymic. Affect is congruent. Thoughts are linear and logical. No evidence of psychosis. Client Response/Progress/Benefit: []Pt was active in group discussion reporting ?negative thinking makes problems worse.? Attentive during psychoeducation on problem-solving strategies. Participated in group experiential activity. Pt provided feedback during interactive group discussion in which pt and peers worked through an example of a problem (Managing Anxiety) in which they identified a goal (minimizing anxiety) and identified barriers. Group was able to complete the activity and pt was able to practice in the moment problem-solving and make connections between problem-solving for activity and in real-life situations. Increased awareness of how pt responds to problems and how communicating effectively is thakur in problem-solving. Will continue IOP tx to further improve emotional regulation, increase motivation, and promote mood stability. Narrative Note: []
--- NOTE | 2022-07-31 11:12 | BH.SGPN.GN ---
Behaviors/Verbalizations/Mental Status: []Pt alert and oriented, casual dress, hygiene tended to. Eye contact good. Motor activity WNL. Speech appropriate rate and tone. Affect congruent, mood euthymic.? Thoughts linear, logical, no signs of hallucinations or delusions. Client Response/Progress/Benefit: []Pt engaged in session as evidenced by pt listening to others and providing input throughout. Pt completed problem solving example with group and identified a goal they want to work on. Goal identified as: taking a few moments to calm down before reacting to stressors. Pt?s barriers included: toxic people and environments, low motivation, and lack of awareness. Pt also identified steps they could take such as spending more time practicing grounding skills when not triggered, reduce unnecessary stressors when recognizing them, and apply mindfulness skills to reduce agitation in the moment. Pt seemed to benefit from learning about problem solving method and rehearsing problem-solving skills in the moment. Pt will continue IOP tx to promote gains, further increase mood management, and further reduce unhealthy coping. Narrative Note: []
--- NOTE | 2022-08-01 09:02 | BH.SGPN.GN ---
Behaviors/Verbalizations/Mental Status: []ye contact fair, casually dressed, motor activity appropriate, speech normal rate and tone, mood euthymic, congruent affect, thoughts linear and intact, no evidence of delusions or hallucinations. Reviewed pt's symptom tracker, no indication of suicidal ideation or intent. Client Response/Progress/Benefit: [] Client respond well to session as evidenced by and listened tentatively others and sharing thoughts and feelings. Client benefit mental positive as getting all his chores done around the house. Client identified additional mental positive was choosing to not smoke marijuana or drink yesterday even though he had been urged to do so. Client reported there was no specific stress that was pushing him to smoke or drink but realizes it has become a habit that he needs to break. Client seen a benefit from support from peers. Client to continue IOP to improve emotional regulation, challenge negative thoughts, and prevent decompensation. Narrative Note: []
--- NOTE | 2022-08-01 10:10 | BH.SGPN.GN ---
Behaviors/Verbalizations/Mental Status: []Eye contact is good. Motor activity is appropriate. Appearance is casual. Speech is Appropriate. Mood is anxious and euthymic. Affect is congruent. Thoughts are linear and logical. No evidence of psychosis. Client Response/Progress/Benefit: []Pt was an active participant in group discussions. Attentive during psychoeducation and participated in interactive discussions in which group defined self-care, discussed the benefits to self-care, and identified common myths surrounding self-care. Pt shared that ?not having consistent self-care can make you more irritable?. Group identified that self-care myths include; self-care is selfish, self-care is just personal hygiene, self-care should be fun, self-care is too time consuming, and I don?t deserve it. Pt and peers broke into smaller group and worked together to bust the myths associated with self-care. Benefited from increased awareness of the self-care and its benefits. Progress noted in increased ability to manage his emotions and self-regulate. Will continue in IOP to prevent decompensation, increase emotion regulation skills, and improve functioning. Narrative Note: []
--- NOTE | 2022-08-01 11:10 | BH.SGPN.GN ---
Behaviors/Verbalizations/Mental Status: []Pt alert and oriented, casually dressed and groomed. Eye contact good. Motor activity appropriate. Speech within normal limits. Affect constricted, mood anxious. Thoughts linear, logical, no signs of hallucinations or delusions. Client Response/Progress/Benefit: []Pt engaged participant AEB completing self-assessment worksheet and providing examples. Participated throughout group discussion on the various areas of self-care. Pt completed worksheet which identified current self-care practices and what self-care activities pt wants to start using. Pt selected spiritual self-care to begin practicing more consistently. Pt plans to do this by trying meditation and self-reflection. Appeared to benefit from completing the self-care evaluation and gaining insights into current self-care practices, as well as identifying areas in which pt would like to improve upon. Will continue IOP tx to further reduce irritability, improve daily functioning, and increase emotional regulation. Narrative Note: []
== END 2022-08-01 23:59 ==
LOC: BHIOP 07:45
PROVIDERS: Visit Provider Psychiatry & Neurology Psychiatry
DX: F31.5 Bipolar disorder, current episode depressed, severe, with psychotic features (principal); F41.1 Generalized anxiety disorder; F90.9 Attention-deficit hyperactivity disorder, unspecified type; F84.0 Autistic disorder; F12.90 Cannabis use, unspecified, uncomplicated
CPT/HCPCS: 99213; 99214; H2012; H2020; S9480; 90832; 90834; 90837

== ENCOUNTER 2022-08-04 09:00 | Outpatient (RCR) | payer MEDICAID, SELFPAY ==
[2022-08-02 01:42] VITALS: BP 148/85; PULSE 77
--- NOTE | 2022-08-04 09:05 | BH.SGPN.GN ---
Behaviors/Verbalizations/Mental Status: []Pt alert and oriented, casually dressed and groomed. Eye contact good. Motor activity appropriate. Speech within normal limits. Affect constricted, mood neutral. Thoughts linear, logical, no signs of hallucinations or delusions. Reviewed pt?s symptom tracker, no risk for suicidal ideation, plan, or intent as of 08/04/22 Client Response/Progress/Benefit: []Pt responded well to session, attentive and engaged. Pt reports feeling friendly and mellow this morning. Pt is anxious about eventually moving out and finding storage for his things, but overall he is functioning better. Pt is going to start a part-time job in the next few weeks and pt has been cleaning more consistently. Pt reported he using opposite action and he has been trying to problem-solve more when faced with stressors. Pt appeared to benefit from reflecting on his progress in functioning. Pt will continue IOP tx to promote mood stability, improve emotional regulation skills, and reduce negative thinking. Narrative Note: []
--- NOTE | 2022-08-04 10:10 | BH.SGPN.GN ---
Behaviors/Verbalizations/Mental Status: [] Eye contact is good. Motor activity is appropriate. Appearance is casual. Speech is Appropriate. Mood is anxious. Affect is congruent. Thoughts are linear and logical. No evidence of psychosis. Client Response/Progress/Benefit: [] Pt was an active participant in group discussion. Attentive AEB by note taking during psychoeducation on the types cognitive distortions, the CBT triangle, and automatic thoughts. This group was very information heavy as group was introduced to the various cognitive distortions however pt did participate in interactive discussions with peers in which they gave examples of certain cognitive distortions. Benefited from increased awareness and education on cognitive distortions and how they impact mental health. Will continue in IOP to prevent decompensation/re-admission, stabilize mood, and increase healthy coping. Narrative Note: []
--- NOTE | 2022-08-04 11:10 | BH.SGPN.GN ---
Behaviors/Verbalizations/Mental Status: []Eye contact is good. Motor activity is appropriate. Appearance is casual. Speech is Appropriate. Mood is euthymic. Affect is congruent. Thoughts are linear and logical. No evidence of psychosis. Client Response/Progress/Benefit: []Pt was an active participant in the group activity which involved working with peers to answer questions related to psychoeducation on cognitive distortions. Questions were posed in the fashion of Jeopardy and the categories included; Identifying the Cognitive Distortion, Ways to reframe cognitive distortions, Examples of cognitive distortions, and other areas related to cognitive distortions. This was an engaging way to help reinforce psychoeducation and to help client retain the information through examples and practicing. Pt was engaged in the game and with peers on collaborating to determine the answers. Client did well with practicing reframing the example thoughts and noted importance of practicing this. Benefited from rehearsing ways to challenge/reframe cognitive distortions and by gaining increased insight into examples/definitions of 10 most common cognitive distortions. Will continue in IOP to increase consistent use of healthy coping, improve emotion regulation, and prevent decompensation.
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
--- NOTE | 2022-08-06 08:55 | BH.SGPN.GN ---
Behaviors/Verbalizations/Mental Status: []Eye contact good, casually dressed, motor activity appropriate, speech normal rate and tone, mood euthymic, congruent affect, thoughts linear and intact, no evidence of delusions or hallucinations. Reviewed pt's symptom tracker, denies suicidal ideation, plan, or intent as of this date 08/06/22. Client Response/Progress/Benefit: []Pt responded well to session, attentive and providing supportive feedback at times throughout. Pt reports feeling hopeful this morning and shared making progress with several goals which has helped him to feel more accomplished and optimistic. These goals included addressing issues with his car insurance and getting a few things done around the house. Identified an additional win as spending time watching a movie with his mom without it turning into an argument. Current stressor noted as trying to maintain his sobriety as he continues to progress in IOP tx. Discussed fear he will struggle when the support of the group is no longer in place. Pt receptive of and appearing to benefit from support provided by the group, as well as identifying maintenance strategies. Pt to continue IOP tx to continue to improve stress management skills, reduce negative thinking, and further improve mood stability. Narrative Note: []
--- NOTE | 2022-08-06 10:00 | BH.SGPN.GN ---
Behaviors/Verbalizations/Mental Status: []Pt alert and oriented, casually dressed and groomed. Eye contact good. Motor activity appropriate. Speech within normal limits. Affect congruent, mood euthymic. Thoughts linear, logical, no signs of hallucinations or delusions. Client Response/Progress/Benefit: []Pt responded well to session AEB sharing when prompted and listening attentively to others. Pt participated in group discussion defining boundaries and why having healthy boundaries is important. Pt shared he has not always been respectful of others? boundaries, but he is improving. Pt stated boundaries give people a ?mutual understanding?. Pt appeared to connect to psychoeducation on types of boundaries, including physical, emotional, and intellectual. Pt listened attentively and nodding throughout discussion in which group members shared personal examples of different types of boundaries. Pt appeared to benefit from increased knowledge of the types of boundaries and increased self-awareness of personal boundaries. Will continue IOP tx to improve emotional regulation skills, further reduce anger, and improve daily functioning. ? Narrative Note: []
--- NOTE | 2022-08-06 11:05 | BH.SGPN.GN ---
Behaviors/Verbalizations/Mental Status: [] Client alert and oriented, casually dressed and appropriately groomed. Eye contact good. Motor activity normal. Speech within normal limits. Affect congruent, mood euthymic. Thoughts linear and intact. no signs of delusions or hallucinations. Client Response/Progress/Benefit: [] Client responded well to session AEB listening attentively to peers, providing input when promoted, as well as taking notes throughout. Group discussed the different boundary setting styles which included rigid, porous, and flexible. Participated well in small group discussion identifying the pros and cons of each boundary setting style. Client stated he most often has rigid boundaries, but recently been working on being more permeable. As a group discussed various strategies to set boundaries. Client reported he would like to work on expressing his boundaries before he gets too angry. Seemed to benefit from increased awareness of how different boundary styles can impact mental health Client will continue IOP tx to increase ability to regulate emotions, increase self-care and increase application of learned skills.
--- NOTE | 2022-08-06 18:00 | BH.MDN ---
Multi-Disciplinary Note - Note 30-min Individual Time Started:: 12:15 Date: 08/06/22 Purpose of session/treatment goals addressed:: Purpose of session was to address goals 1 and 2 from MTP. Eye Contact:: Good Motor Activity:: Appropriate Appearance:: Casual Speech:: Appropriate Mood:: Euthymic Affect:: Congruent Thoughts:: Linear, Logical, No evidence of hallucinations/delusions noted Staff Interventions:: thought challenging, CBT techniques, strengths perspective, goal setting, other - reviewed healthy communication skills Client Response:: Client reported overall the last two days have gone better. Client stated he did take two hits of marijuana last night. Client reported he wants to be able to occasionally smoke marijuana but does not want to go back to how he used to smoke 15 bowls a day. Client stated he thinks his PS4 being broken has increased urge to smoke or drink as a way to distract himself. Client reported [employer] has always been a good distraction for him. However, he noted importance of having balance when he gets his new PS4 because he used to have no limits and play for too many hours. Client reported yesterday he was productive by getting dishes done, doing laundry and switching his car insurance to his current car. Client stated he did go to his apartment earlier in week to clean, reported making progress. Client reported last night he spent time with mom watching a movie and they got along well the whole time. Client stated it was nice to spend quality time together without it being tense. Client stated goals for today are going to apartment, mow mom's yard, fill bird feeders and attend youth yarsanism group. Stated goal for tomorrow is to take job application to [employer] to his uncle so he can get on the schedule soon. Risks/Concerns:: Denies suicidal ideation, plan or intention to date. future focused. Progress Toward Goals/Plan:: Progress noted with client reporting continued improved mood, improved interaction with mom, no anger outbursts in last two days, and increased productivity. Client is struggling with desire to drink or smoke marijuana each day. Client does have insight he needs to cut back on this because doesn't want to become reliant. Client to continue IOP to continue use of healthy coping, help client with transition to new job soon, and prevent decompensation. Time Stopped:: 12:40
--- NOTE | 2022-08-08 09:05 | BH.SGPN.GN ---
Behaviors/Verbalizations/Mental Status: [] Eye contact is good. Motor activity is appropriate. Appearance is casual. Speech is Appropriate. Mood is depressed. Affect is congruent. Thoughts are linear and logical. No evidence of psychosis. Reviewed daily check in sheet and no reports of SI. Client Response/Progress/Benefit: [] Pt was an active participant in group discussion. Attentive. Daily symptom tracker notes 2/5 fort anxiety and irritability. Emotion for today is ?tired?. Mental health win is that he is ?getting stuff done? which had been an issue in the past due to anger, depression, and lack of motivation. Shared that he completed laundry, dishes, and other tasks. Has an urges to smoke weed to self-medicate for anger and anxiety however was able to decrease cravings and ultimately did not smoke which he reports is a ?big win? for him. Stressor is that he is feeling ?antagonistic? today. Shared that he often feels the need to ?start things? with others which can cause significant conflict with his support aand ultimately negatively impacting him and his mental health. Insight and awareness of this which he hopes stop this behavior. Benefited from group support, encouragement, and feedback. Will continue in IOP top prevent decompensation, stabilize mood, and improve functioning. Narrative Note: []
--- NOTE | 2022-08-08 11:14 | BH.SGPN.GN ---
Behaviors/Verbalizations/Mental Status: []Client alert and oriented, casually dressed and groomed. Eye contact good. Motor activity appropriate. Speech within normal limits. Affect congruent, mood euthymic. Thoughts linear, logical, no signs of hallucinations or delusions. Client Response/Progress/Benefit: []Pt responded well to session, participating in activity, and providing input and processing personal connections to topic discussed which is progress for pt. Did well to process the activity and identify how skills used in accomplishing the task related to making healthy changes in one?s own life. Pt selected one change they would like to make and created a SMART goal to help make this change. Shared wanting to work on improving his willingness to ask for help. Discussed that this change would help client feel more supported and validated by supports. Client?s goal was to start reaching out to supports daily to improve comfort levels in discussing personal thoughts and feelings with others. Client benefited from working with group to identify strategies to overcome barriers to change and create a plan for implementing one small change promoting personal growth. Client recommended to continue IOP tx to improve interpersonal relationships, further stabilize moods, as well as prevent decompensation. Narrative Note: []
--- NOTE | 2022-08-12 09:00 | BH.SGPN.GN ---
Behaviors/Verbalizations/Mental Status: [] Eye contact is good. Motor activity is appropriate. Appearance is casual. Speech is Appropriate. Mood is depressed. Affect is congruent. Thoughts are linear and logical. No evidence of psychosis. Reviewed daily check in sheet and no reports of SI. Client Response/Progress/Benefit: [] pt participated at times during the group discussion. Attentive. Emotion for today is ?content?. Daily symptom tracker notes 2/5 for depression/anxiety and /5 for irritability. Mental health wins were ?I got a lot done?. Completing tasks is very important to his mental health him helping him feel accomplished. Shared that this weekend was the two-year anniversary of his father?s . He did not elaborate much except to say that it was ?difficult? and that he tried to provide support to his mother. Primary coping strategy over the weekend was distraction. His stressor is ?staying motivated?. Benefited from group support, encouragement, and feedback. Will continue in IOP to prevent decompensation, increase healthy coping, and improve functioning. Narrative Note: []
--- NOTE | 2022-08-13 12:17 | PCM.BH.PN_ITS ---
Progress Note Progress Note: History of Present Illness/Interim History: The patient is a 26-year-old male with a history of bipolar 1 disorder, anxiety, ADHD and autism spectrum disorder who is seen in follow-up at the [facility] IOP program. The patient was last seen 3 weeks ago and at that time he had been back on his Adderall and was doing well. The patient recently had his Abilify increased to 30 mg p.o. daily at at bedtime by his outpatient provider several weeks ago and feels he is tolerating the increased dose well. 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 He is currently not working. The patient feels better overall and has really gained insight by participating in the IOP program. He states that his antagonistic behaviors towards his mother have lessened as he is starting to realize that sometimes he pushes her buttons and does not intend any harm but it can escalate to a major fight. He has become more aware of what his actions are doing to those around him and feels that this has caused their situation at home to improve. He has been doing relaxation exercises and breathing exercises to help himself calm down and walk away from situations when he feels angry or irritated. Patient understands that his use of alcohol and marijuana are not good for him and he has been actively working to decrease their use. He is now using marijuana every other day 1 time only and his alcohol is every other day he has 2 beers or 2 shots only. The Adderall is helping his concentration and he has been helping his mom more around the house and his concentration has improved. The patient has some ongoing issues with anxiety and some negative rumination and struggles with feeling happy. The patient denies passive thoughts of , suicidal ideation, homicidal ideation, hallucinations, delusions, or symptoms of viktoria. Current Psychiatric Medications: [] Abilify 30 mg p.o. nightly (dose increased several weeks ago); Adderall Exar 20 mg p.o. every morning; Prozac 10 mg p.o. daily Mental Status Examination: [] The patient is a tall, large built 26-year-old male who appears normal for stated age. He is casually dressed and groomed with good hygiene. He is ambulatory with a normal gait and has no p sychomotor agitation or retardation. He is cooperative during the interview. Eye contact is okay overall but he does look down today when discussing certain topics. Speech is normal rate and rhythm and fluent with no pressure. Mood is mildly down and affect is full and normal. Thought process is goal-directed and organized. Thought content: The patient struggles with how to be happy. There is no evidence of passive thoughts of , suicidal ideation, homicidal ideation, plan for suicide, hallucinations or delusions. Reality testing is intact. Intelligence is average. Impulsivity is moderate. Judgment is intact and insight is good. Diagnoses: [] 1. Bipolar 1 disorder, most recent episode depression, severe with psychosis (almost completely resolved, F31.5) #2. Generalized anxiety disorder 3. ADHD 4. Autism spectrum disorder 5. Marijuana use disorder 6. Methamphetamine and cocaine use disorder (in full remission for 5 years) Plan: [] Long discussion was had about the patient having trouble feeling happy like he did when he used drugs in the past. Long discussion was had about happiness versus miranda fullness and discussion of patient's spirituality was also done and the patient states that he is attending a [employer]ism m[employer]on on a regular basis which she feels helps him. The patient will continue the IOP program at [facility] as the structure, support, education and group therapy will hopefully prevent worsening of the patient's symptoms. He felt safe during the interview and if it anytime he does not feel safe he will let us know or go to the emergency room. The risks, options, possible complications and side effects of the medications were discussed with the patient and he understands and accepts these. No medication changes were made today. The patient agrees to investigate for himself what improves his spirituality and his ability to feel miranda in life. The patient will continue to follow-up with his outpatient providers and I will see the patient in follow-up in several weeks while he is in the IOP program.
--- NOTE | 2022-08-14 09:05 | BH.SGPN.GN ---
Behaviors/Verbalizations/Mental Status: [] Eye contact is good. Motor activity is appropriate. Appearance is casual. Speech is Appropriate. Mood is depressed. Affect is congruent. Thoughts are linear and logical. No evidence of psychosis. Reviewed daily check in sheet and no reports of SI. Client Response/Progress/Benefit: [] pt was an active participant in group discussions. Attentive. Provided appropriate feedback. Emotion for today is ?still?. Mental health win was completing self-care yesterday and working through overwhelming emotions. He reports that he is struggling with ?finding miranda in the world?. He provided more details regarding how this impacts his mental health and asked for feedback from the group. Trouble identifying avenues that bring him happiness which increases his cravings to smoke weed. Benefited from group feedback. Will continue in IOP to prevent decompensation/-re-admission, stabilize mood, and increase healthy coping. Narrative Note: []
--- NOTE | 2022-08-14 10:05 | BH.SGPN.GN ---
Behaviors/Verbalizations/Mental Status: [] Client alert and oriented, casually dressed and groomed. Eye contact good. Motor activity appropriate. Speech within normal limits. Affect congruent, mood euthymic. Thoughts linear, logical, no signs of hallucinations or delusions. Client Response/Progress/Benefit: [] Client was an active participant in group discussions and activity. Attentive during psychoeducation. Client along with peers were able to identify several negatives on the picture given to the group. Client and peers also identified positives in the picture and made the connect that finding positives is much more difficult. Client shared that initially all he could see was negatives untill asked to look for the positives then was able to find them. Interactive discussion on the definition of perspective, how perspective is formed, and why perspective is important in treatment. Client along with peers also identified that perspective can either motivate and encourage treatment or be a barrier to receiving help. Client along with group members came up with benefits of having a hopeful perspective for their mental health, which included feeling more encouraged, feeling less depressed, and increased motivation. Will continue in IOP to promote gains, increase overall functioning and increase use of healthy coping skills. Narrative Note: []
--- NOTE | 2022-08-14 11:30 | BH.MDN ---
Multi-Disciplinary Note - Note 30-min Individual Time Started:: 11:00 Date: 08/14/22 Purpose of session/treatment goals addressed:: Reviewed current symptoms and progress in IOP. Addressed all treatment plan goals. Pt's program therapist is on vacation this week and she requested that staff check-in with patient. Eye Contact:: Good Motor Activity:: Appropriate Appearance:: Casual Speech:: Appropriate Mood:: Euthymic Affect:: Full Thoughts:: Linear, Logical, No evidence of hallucinations/delusions noted Staff Interventions:: discharge planning, strengths perspective Client Response:: Pt was cooperative and responded well to the session. We processed events and thoughts yesterday which resulted in anger and depression. Has been struggling with finding happiness and miranda in life which has led to increased cravings for drug use and unhealthy coping. This has also resulted in hopelessness. After we processed yesterday further it was clear that pt actually utilized a great deal of healthy skills which helped me get over everything in a couple hours rather than let it ruin my day. His interaction with program psychiatrist yesterday was really helpful and helped get me out of my head. Increased confidence in his ability to manage negative emotions. Praised for his effort. Overall he reports that his week is going well. Putting effort into improved and healthy communication with his support which he is seeing benefits. He admits that medication compliance has been poor this week. We discussed his morning and night routine and identify several strategies to help improve his medication compliance. We also discussed ways to find miranda in day to day life. Risks/Concerns:: no risks or concerns noted. Progress Toward Goals/Plan:: Progress noted per pt report. Pt was able to utilize thought reframing, self-care, and calming skills yesterday with overwhelming depression and hopelessness. Increased confidence in his ability to manage these emotions. We discussed aftercare plans and he is currently linked with psychiatry and plans on attending [facility] aftercare program. He has been referred to individual counseling by his outpatient psychiatrist however no appointment has been scheduled yet. He was given a list of counselors in the area. Will continue in IOP to maintain gains. Plans on starting a new job in the next few weeks. Also has completed paperwork to get linked with local agency which helps job service specialist and link individuals with jobs in the area. Time Stopped:: 11:30
--- NOTE | 2022-08-19 10:10 | BH.SGPN.GN ---
Behaviors/Verbalizations/Mental Status: [] Client alert and oriented, casually dressed and groomed. Eye contact good. Motor activity appropriate. Speech within normal limits. Affect congruent, mood euthymic. Thoughts linear, logical, no signs of hallucinations or delusions. Client Response/Progress/Benefit: [] Client receptive to session AEB contributing to discussion and listening attentively to others. Taking notes. Worked with group to brainstorm the positive and negative aspects of stress on physical and mental health. Group did well to identify the benefits of stress as well as the impact of distress on performance and mental health. Client identified their personal top stressors as: maintaining healthy relationships, looking for a new job, and self-reflection. Client reports when the stress overflows client reacts with increased anxiety and racing thoughts, as well as feeling blank, and not knowing how to respond. Client seemed to benefit from increased awareness of current stressors and impact stress has on mental health. Recommended to continue IOP tx to stabilize moods, increase confidence and prevent decompensation. Narrative Note: []
--- NOTE | 2022-08-19 11:10 | BH.SGPN.GN ---
Behaviors/Verbalizations/Mental Status: []Pt alert and oriented, casually dressed and groomed. Eye contact good. Motor activity appropriate. Speech within normal limits. Affect congruent, mood euthymic. Thoughts linear, logical, no signs of hallucinations or delusions. Client Response/Progress/Benefit: []Pt participated at times during group discussions. Attentive during psychoeducation on the 4 A's of Coping with Stress (Avoid, Alter, Adapt, Accept). Participated in experiential activity in which group members had to utilize stress management skills in the moment. Pt agreed with peers that their cooperation and communication was a helpful resource and pt worked well with peers to problem-solve. Pt engaged in review of the 4 A?s and picked wanting to work on altering his approach to managing anxiety about getting a new job through using mindfulness and healthy coping techniques. Benefited from processing in the moment stress management strategies and identifying new ways to cope with stress. Will continue in IOP to reduce intensity of symptoms, improve communication with supports, and maintain gains made. Narrative Note: []
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
--- NOTE | 2022-08-21 09:00 | BH.SGPN.GN ---
Behaviors/Verbalizations/Mental Status: []Pt eye contact fair, casually dressed, motor activity appropriate, speech normal rate and tone, mood anxious, congruent affect, thoughts linear and intact, no evidence of delusions or hallucinations.Patient's symptom tracker does not indicate any suicidal ideation, plan, or intent. Client Response/Progress/Benefit: []Pt responded well to session AEB listening attentively to others and sharing thoughts and feelings. Pt reported mental health positive as going to his apartment to clean. Pt stated additional mental health positive as turned in application for a job. Pt reported feeling anxious about potentially starting a new job since he has been struggling with maintaining jobs in his recent past. Pt stated he knows having a job can help relieve some stress in his life but also worried he is going to fail. Pt stated stressor as trying to limit use of alcohol and marijuana. Pt stated tonight he will take a mindful walk as a way to replace marijuana use when feeling anxious. Pt seemed to benefit from support from peers. Pt to continue IOP to continue use of healthy coping skills, challenge negative thoughts, and prevent decompensation. Narrative Note: []
--- NOTE | 2022-08-21 10:05 | BH.SGPN.GN ---
Behaviors/Verbalizations/Mental Status: []Pt alert and oriented, casually dressed and groomed. Eye contact good. Motor activity appropriate. Speech within normal limits. Affect congruent, mood content. Thoughts linear, logical, no signs of hallucinations or delusions. Client Response/Progress/Benefit: []Pt participated at times during the group discussion. Attentive during psychoeducation. Participated in experiential activity. Pt contributed during interactive discussion on the consequences of unhealthy expression of emotions.? Worked with group to identify several consequences which included; pushing people away, ?exploding,? and not getting needs met. Contributing during interactive discussion on common potholes to effectively communicating and pt identified personal ones such as ?running people off? and being scattered. Pt was able to relate and make connections between the experiential activity and the overall topic, reported experiencing self-doubt, but managing it well. Benefited from increased awareness of how stress and emotions can impact one's ability to communicate. Will continue in IOP to prevent decompensation, continue to improve overall functioning, and maintain gains in emotional regulation skills. Narrative Note: []
--- NOTE | 2022-08-21 11:05 | BH.SGPN.GN ---
Behaviors/Verbalizations/Mental Status: []Pt alert and oriented, casually dressed and groomed. Eye contact good. Motor activity appropriate. Speech within normal limits. Affect congruent, mood euthymic. Thoughts linear, logical, no signs of hallucinations or delusions. Client Response/Progress/Benefit: []Pt engaged in session AEB pt listening attentively to peers and providing input. Attentive during psychoeducation on 4 zones of regulation. Pt able to identify feelings and behaviors for each zone.? Pt identified coping skills one can use to support self in each zone. Pt stated belief that pt is in the yellow zone today as pt feels irritable and was impatient earlier. Pt reports going for a walk and practicing patience will help pt get out of the yellow zone today. Benefited from increased education on zones of regulation or stages of alertness for emotions and healthy coping skills to use for each zone. Pt will continue IOP tx to further improve mood stability, reduce impulsivity, and reinforce healthy coping skills. Narrative Note: []
--- NOTE | 2022-08-26 09:00 | BH.SGPN.GN ---
Behaviors/Verbalizations/Mental Status: [] Eye contact is good. Motor activity is appropriate. Appearance is casual. Speech is Appropriate. Mood is depressed. Affect is full. Thoughts are linear and logical. No evidence of psychosis. Reviewed daily check in sheet and no reports of suicidal ideations or intent. Client Response/Progress/Benefit: [] Pt was an active participant in group discussions. Attentive. Provided appropriate feedback. Emotion for today is ?groggy?. Daily symptom tracker notes 12/07 for anxiety. Mental health wins include ? I got along well with my mom all weekend?. This is a significant ?win? for patient as conflict with his mother is a primary trigger to his anger, depression, anxiety, and stress. Conflicts can result in decompensation. He reports that he has learned numerous coping skill to manage his thoughts, emotions, and behaviors. He also reports that he is not instigating his support. Less impulsive. Progress noted per pt report. Benefited from group support, encouragement, and feedback. Will continue in IOP to maintain gains. Plan to discharge next week. Narrative Note: []
--- NOTE | 2022-08-26 10:10 | BH.SGPN.GN ---
Behaviors/Verbalizations/Mental Status: []Pt alert and oriented, neatly dressed and groomed. Eye contact good. Motor activity appropriate. Speech within normal limits. Affect congruent, mood euthymic. Thoughts linear, logical, no signs of hallucinations or delusions. Client Response/Progress/Benefit: []Pt was an active participant in group discussions. Attentive during psychoeducation. Participated with peers in experiential activity. Pt participated in an interactive discussion with peers in which they worked together to define what coping skills are. Indicates that he, like peers, struggle with replacing unhealthy coping skills. Group then identified unhealthy coping skills which included; avoidance, distraction, taking on others problems, and shutting down. Pt stated unhealthy coping skills often short-term fixes and easier. Pt reports he has found it helpful to process his stressors one at a time which requires patience. Benefited from increased awareness and education the benefits of have both internal and external coping skills. Will continue in IOP to help pt further improve mood stability, increase distress tolerance skills, and promote gains. Narrative Note: []
--- NOTE | 2022-08-27 15:55 | BH.MDN ---
Multi-Disciplinary Note - Note 30-min Individual Date: 08/27/22
--- NOTE | 2022-08-28 10:10 | BH.SGPN.GN ---
Behaviors/Verbalizations/Mental Status: []Pt alert and oriented, casually dressed and groomed. Eye contact good. Motor activity appropriate. Speech within normal limits. Affect congruent, mood euthymic. Thoughts linear, logical, no signs of hallucinations or delusions. Client Response/Progress/Benefit: []Pt responded well to session AEB contributing to discussion, taking notes, and listening attentively to others. Group discussed the benefits of managed anger and anger as a secondary emotion. Pt shared perspective on negatives from acting out in anger as stress and more mental health issues.? Pt completed worksheet on anger triggers and personal warning signs of anger. Pt identified his biggest triggers as feeling ?dumb,? being threatened, and being disrespected. Appeared to benefit from increased knowledge of the anger cycle as well as personal triggers. Will continue IOP tx to further improve mood stability and reinforce use of healthy coping skills. Narrative Note: []
--- NOTE | 2022-08-28 11:10 | BH.SGPN.GN ---
Behaviors/Verbalizations/Mental Status: []Client alert and oriented, casually dressed and groomed. Eye contact good. Motor activity appropriate. Speech within normal limits. Affect congruent, mood euthymic. Thoughts linear, logical, no signs of hallucinations or delusions. Client Response/Progress/Benefit: []Pt was engaged throughout AEB contributing to group discussion and self-reflection. Group finished processing cues to anger worksheet. Pt identified behavioral cues to anger include: yelling, hostile thoughts, stare at others, intimidation, swearing a lot, and smoking. Pt contributed as group brainstormed healthy coping skills for better managing anger which included: music, walking/exercise, changing the environment, communicating with supports, and journaling. Pt appeared to benefit from identifying different techniques to manage anger as well as gaining awareness of potential consequences of unmanaged anger. Will continue IOP tx to promote the use of healthy coping skills and prevent decompensation.
--- NOTE | 2022-09-02 20:17 | BH.DS ---
Discharge Summary - Demographics Date of Admission:: 06/30/22 Discharge Date: 09/02/22 Presenting Problems at Admission:: The patient is a 26-year-old with history of anxiety, bipolar 1 disorder, ADHD and autism spectrum disorder who was [facility] being admitted to the psychiatric unit for suicidal ideation and paranoia from June 05 to June 13, 2022. Client?s mental health has impacted client?s ability to maintain employment, often getting fired due to his anger outbursts. Prior to psychiatric admission he was not taking care of himself, not taking care of his apartment, and spending majority of his day smoking marijuana; reported using 15-20 bowls per day. Discharge Diagnoses:: 1. Bipolar 1 disorder, most recent episode depression, severe with psychosis (F31.5). 2. Generalized anxiety disorder. 3. ADHD. 4. Autism spectrum disorder. 5. Marijuana use disorder, sober for 2 weeks. 6. Methamphetamine and cocaine use disorder, sober for 5 years Reason for Discharge:: Pt has made significant treatment progress and no longer meets medical necessity for [facility] level of care. - Treatment Progress During Treatment & Response: Pt's DSM 5 cross cutting scores at discharge indicate a 57% decrease in depression, 20% decrease in anxiety, and 64% overall reduction in mental health symptoms when compared to pt's mid-point DSM 5 scores. Pt has shown improvement with challenging negative perspective, decrease in anger outbursts, improved conflict resolution skills, improved use of skills in the moment, and has been able to recently obtain employment. Pt responded well to treatment AEB consistent treatment attendance, contributions to group, and engagement in individual therapy. Issues Still to be Addressed:: Client could benefit from reinforcement of healthy coping skills, conflict resolution, communication skills, anger management skills, and thought challenge. Client would benefit from support in helping client manage new job. Client has been increasing use of marijuana and could benefit in skills/strategies to manage use. Discharge Recommendations/Instructions:: Client recommended to continue medication management with Sara Inman. Client has been on waitlist for a new counselor through the [facility]. Client also is supposed to be on waitlist for family independence case manager. Client has elected to wait for counseling center instead of reach out to another agency to get counseling sooner. Discharge Handout: Complete Discharge Handout with client on aftercare options and continuity of care.
== END 2022-09-01 23:59 ==
LOC: BHIOP 09:00
PROVIDERS: Visit Provider Psychiatry & Neurology Psychiatry
DX: F31.5 Bipolar disorder, current episode depressed, severe, with psychotic features (principal); F41.1 Generalized anxiety disorder; F90.9 Attention-deficit hyperactivity disorder, unspecified type; F84.0 Autistic disorder; F12.90 Cannabis use, unspecified, uncomplicated
CPT/HCPCS: 99214; H2012; H2020; S9480; 90832; 90834

== ENCOUNTER 2022-09-02 08:07 | Outpatient (RCR) | payer MEDICAID, SELFPAY ==
[2022-09-02 00:35] VITALS: BP 148/85; PULSE 77
--- NOTE | 2022-09-02 09:00 | BH.SGPN.GN ---
Behaviors/Verbalizations/Mental Status: []Eye contact good, casually dressed, motor activity appropriate, speech normal rate and tone, mood dysthymic, constricted affect, thoughts linear and intact, no evidence of delusions or hallucinations. Reviewed pt's symptom tracker pt denies any SI plan, or intent as of this date 09/02/22. Client Response/Progress/Benefit: [] Pt responded well to session, attentive and receptive to feedback. Pt reports feeling dark this morning, but after his check-in pt reported he feels better. Pt shared he felt dark today because he was anxious about returning to work as pt's new job starts tomorrow. Pt able to combat his anxiety and remind himself of the progress he has made. Pt shared since admission, pt's motivation and energy have increased and pt is more in control of his emotions. Pt appeared to benefit from challenging his perspective. Pt will continue IOP tx to promote mood stability and further improve emotional regulation skills. Narrative Note: []
--- NOTE | 2022-09-02 10:05 | BH.SGPN.GN ---
Behaviors/Verbalizations/Mental Status: [] Eye contact is good. Motor activity is appropriate. Appearance is casual. Speech is Appropriate. Mood is euthymic. Affect is full. Thoughts are linear and logical. No evidence of psychosis. Client Response/Progress/Benefit: [] Pt was an active participant in group discussions. Attentive during psychoeducation on SMART goals (Specific, Measurable, Achievable, Realistic, and Time-bound) Engaged in group experiential activity. Participated in an interactive discussion with peers in which they worked together to define what a goal is and the benefits of having goals. Benefits identified included; something to look forward too, needed for growth, keeps one motivated, helps us track our progress, given one a sense of purpose, and keeps one busy and engaged. Participated in interactive discussion in which group identified barrier to setting goals and following through with goals. Barriers identified included; too much time and effort, criticism from self/others, unrealistic expectations, outside stressors, and fear of failure. Benefited from increased awareness of benefits and strategies for goal-setting. Will continue in IOP to prevent decompensation/-re-admission, increase healthy coping, and improve functioning. Narrative Note: []
--- NOTE | 2022-09-02 11:10 | BH.SGPN.GN ---
Behaviors/Verbalizations/Mental Status: [] Eye contact is fair. Alert and oriented. Motor activity is appropriate. Appearance is casual. grooming is appropriate. Speech is Appropriate. Mood is euthymic. Affect is congruent.. Thoughts are linear and logical. No evidence of psychosis or hallucinations.. Client Response/Progress/Benefit: []Client was engaged during discussion, did well to complete activity and process with the group. Client was willing to complete the worksheet in which was challenged to develop a personal SMART goal. Client chose the goal of writing in his gratitude journal once a day. Client stated this will benefit him by improving positive attitude and increased self reflection. Client identified barriers which included: time management, brain fog, and bad moods. Client receptive to identifying solutions for these barriers and willing to begin working on this goal. Benefited from this group by developing a short-term SMART goal related to mental health. Will continue IOP tx to continue use of healthy coping skills, challenge negative thinking and prevent decompensation.
--- NOTE | 2022-09-04 10:05 | BH.SGPN.GN ---
Behaviors/Verbalizations/Mental Status: [] Eye contact is good. Motor activity is appropriate. Appearance is casual. Speech is Appropriate. Mood is euthymic. Affect is full. Thoughts are linear and logical. No evidence of psychosis. Client Response/Progress/Benefit: [] Pt was an active participant in group discussions. Attentive during psychoeducation on Communication Styles (Passive, Passive-Aggressive, Aggressive, and Assertive). Participated during interactive discussion on obstacles to effective communication which included; assumptions, unmanaged emotions, minimizing symptoms, resentment, etc. Participated during interactive discussion on benefits to effective communication which included; getting needs met, increased trust, improved relationships, ability to better manage conflict, decreased stress, increased self-worth, and decreased anxiety. Pt was placed in small group and was engaged in identifying benefits and consequences of each communication style. Benefited from increased understanding of communication styles and the impact they have on mental wellness. Pt is set to discharge from [facility] today. Narrative Note: []
--- NOTE | 2022-09-04 11:10 | BH.SGPN.GN ---
Behaviors/Verbalizations/Mental Status: []Client alert and oriented, casually dressed and appropriately groomed. Eye contact good. Motor activity appropriate. Speech WNL. Affect constricted, mood euthymic. Thoughts linear, logical, no signs of hallucinations or delusions. Client Response/Progress/Benefit: []Client responded well to session AEB client listening attentively to others and providing input during group discussion on the pay offs and costs of the different communication styles. Client reported in the past in mostly used aggressive communication which pushed people away and didn't resolve issues. Client reported he has been working on being more assertive and calm with his communication. Client stated can note having more positive outcomes when is assertive versus when he would use aggressive communication. Client engaged in activity, worked cooperatively with others. Connected with peers comments about importance of using assertive communication. Client seemed to benefit from increasing awareness of healthy strategies to improve communication. Will continue IOP tx to continue use of healthy coping, maintain gains, and prevent decompensation.
--- NOTE | 2022-09-04 14:42 | BH.MDN ---
Multi-Disciplinary Note - Note 30-min Individual Time Started:: 12:05 Date: 09/04/22 Purpose of session/treatment goals addressed:: Purpose of session was to identify treatment progress, complete maintenance plan, and solidify discharge plans. Eye Contact:: Good Motor Activity:: Appropriate Appearance:: Casual Speech:: Appropriate Mood:: Euthymic, Anxious Affect:: Congruent Thoughts:: Linear, Logical, No evidence of hallucinations/delusions noted Staff Interventions:: CBT techniques, discharge planning, strengths perspective, reviewed DSM-5 Client Response:: Client shared feeling bittersweet about today being his last day in the program because he has found a lot of benefit in being here. Client expressed concern he won't be able to maintain his progress when out of [facility]. Client recognizes he can maintain progress if he utilizes the skills consistently. Client worked with therapist to complete maintenance plan in which he identified triggers, warning signs, self-care activities, and healthy coping skills. Client stated he has noticed signficiant treatment progress since starting IOP. Client reported he is better at managing his emotions in the moment, has decreased anger outbursts, has found employment, and improved ability to challenge distorted thoughts. Client reported improved communication and conflict resolution skills. Client recognizes still needs to work on his communication skills, but notes when he does communicate effectively it tends to lead to better outcomes when talking with his mom. Client stated he does believe he has the skills needed to help him better navigate his mental health and everyday stressors. Risks/Concerns:: Denies suicidal/homicidal ideation, plan, or intention to date. Progress Toward Goals/Plan:: Pt's DSM 5 cross cutting scores at discharge indicate a 57% decrease in depression, 20% decrease in anxiety, and 64% overall reduction in mental health symptoms when compared to pt's mid-point DSM 5 scores. Pt has shown improvement with challenging negative perspective, decrease in anger outbursts, improved conflict resolution skills, improved use of skills in the moment, and has been able to recently obtain employment. Plan is for client to discharge from [facility] today. Client is established with outpatient psychiatry through the [facility]. Client is on waitlist for counseling and case management at the counseling center. Client stated at this time he will wait for counseling center to establish him with a counselor. Client will start [facility] Aftercare program on 09/11/22. Time Stopped:: 12:30
--- NOTE | 2022-09-04 15:28 | BH.DS ---
Discharge Summary - Demographics Date of Admission:: 06/30/22 Discharge Date: 09/04/22 Presenting Problems at Admission:: The patient is a 26-year-old with history of anxiety, bipolar 1 disorder, ADHD and autism spectrum disorder who was [facility] to [facility] after being admitted to the psychiatric unit for suicidal ideation and paranoia from June 05 to June 13, 2022. Client?s mental health has impacted client?s ability to maintain employment, often getting fired due to his anger outbursts. Prior to psychiatric admission he was not taking care of himself, not taking care of his apartment, and spending majority of his day smoking marijuana; reported using 15-20 bowls per day. Discharge Diagnoses:: 1. Bipolar 1 disorder, most recent episode depression, severe with psychosis (F31.5). 2. Generalized anxiety disorder. 3. ADHD. 4. Autism spectrum disorder. 5. Marijuana use disorder, sober for 2 weeks. 6. Methamphetamine and cocaine use disorder, sober for 5 years Reason for Discharge:: Pt has made significant treatment progress and no longer meets medical necessity for [facility] level of care. - Treatment Progress During Treatment & Response: Pt's DSM 5 cross cutting scores at discharge indicate a 57% decrease in depression, 20% decrease in anxiety, and 64% overall reduction in mental health symptoms when compared to pt's mid-point DSM 5 scores. Pt has shown improvement with challenging negative perspective, decrease in anger outbursts, improved conflict resolution skills, improved use of skills in the moment, and has been able to recently obtain employment. Pt responded well to treatment AEB consistent treatment attendance, contributions to group, and engagement in individual therapy. Issues Still to be Addressed:: Client could benefit from reinforcement of healthy coping skills, conflict resolution, communication skills, anger management skills, and thought challenge. Client would benefit from support in helping client manage new job. Client has been increasing use of marijuana and could benefit in skills/strategies to manage use. Discharge Recommendations/Instructions:: Client recommended to continue medication management with Sara Inman. Client has been on waitlist for a new counselor through the [facility]. Client also is supposed to be on waitlist for pillowcase cleaner. Client has elected to wait for counseling center instead of reach out to another agency to get counseling sooner. Discharge Handout: Complete Discharge Handout with client on aftercare options and continuity of care.
== END 2022-09-04 12:34 | disposition home or self-care (01) ==
LOC: BHIOP 08:07
PROVIDERS: Visit Provider Psychiatry & Neurology Psychiatry
DX: F31.5 Bipolar disorder, current episode depressed, severe, with psychotic features (principal); F41.1 Generalized anxiety disorder; F12.90 Cannabis use, unspecified, uncomplicated; F90.9 Attention-deficit hyperactivity disorder, unspecified type; F84.0 Autistic disorder; Z79.899 Other long term (current) drug therapy; F14.91 Cocaine use, unspecified, in remission; F11.91 Opioid use, unspecified, in remission
CPT/HCPCS: H2020; S9480; 90832

== ENCOUNTER 2022-09-11 14:06 | Outpatient (RCR) | payer MEDICAID, SELFPAY ==
--- NOTE | 2022-09-11 14:00 | BH.SGPN.GN ---
Behaviors/Verbalizations/Mental Status: []Pt alert and oriented, casually dressed. Eye contact good. Motor activity appropriate. Speech within normal limits. Affect congruent, mood euthymic. Thoughts linear, logical, no signs of hallucinations or delusions. Client Response/Progress/Benefit: []Pt responded well to session, engaged and providing input throughout. Pt checked in using aftercare worksheet and pt reports he did not see his therapist this week but has an appointment scheduled, he did meet with psychiatry, and pt has been taking medications. Pt has been using coping skills such as positive affirmations, self-reflection, and opposite action. Pt participated in the discussion of self-love and how one can increase this. Pt reported it is challenging to have self-love when you don?t feel you deserve it, but this is something pt continues to work on challenging. Pt selected strategies to improve self-love and shared this week pt is going to focus on embracing and loving the things that make him different by expressing self-gratitude for one thing about himself daily. Pt appeared to benefit from increasing skills to build self-love. Pt will continue IOP aftercare to further increase mood stability and promote gains made in IOP. Narrative Note: []
--- NOTE | 2022-09-11 14:49 | BH.MTP ---
Master Treatment Plan - Patient Information Program Physician:: Dr. Shaffer Primary Therapist:: Sulma Cartagena, [facility] - Psychiatric Diagnoses Psychiatric Diagnoses:: 1. Bipolar 1 disorder, most recent episode depression, severe with psychosis (F31.5). 2. Generalized anxiety disorder. 3. ADHD. 4. Autism spectrum disorder. 5. Marijuana use disorder, sober for 2 weeks. 6. Methamphetamine and cocaine use disorder, sober for 5 years Diagnosis Code(s):: F31.5 - Estimated LOS Estimated LOS (in weeks):: 8 Problem/Goal #1 - Problem/Goal #1 Stated Goal:: client will maintain or see a reduction in symptoms AEB client score on the DSM 5 cross-cutting measure and improve client's daily functioning. - Objectives Objective #1 Stated Objective: Client will continue to consistently apply healthy coping skills to maintain progress made in IOP tx. Interventions: Through group therapy, client will review warning signs and triggers as well as healthy coping skills learned in IOP tx to successfully maintain gains while transitioning into outpatient therapy. Discharge Criteria: Client will have accomplished this goal when client's score on the DSM-5 cross-cutting measure has maintained or reduced over a 8 week period. Target Date: 11/20/22 Review Date: 10/16/22 Objective #2 Stated Objective: Client will learn and utilize 2-3 maintenance strategies to prevent decompensation from original IOP DSM-5 scores. Interventions: Through group therapy, client will be provided with education on healthy maintenance behaviors, relapse prevention techniques, and healthy coping strategies. Discharge Criteria: Client will have accomplished this goal when can report using at least 2 maintenance skills to prevent decompensation compared to original IOP DSM-5 scores. Target Date: 11/20/22 Review Date: 10/16/22
--- NOTE | 2022-09-11 14:53 | BH.COMM ---
Communication Note - Communication with Client Communication Note: Presented completed IOP and presents today to starting relapse prevention group which meets once weekly (1.5 hours) for 10 weeks. Case discussed with Dr. Shaffer with plan to admit with dx of F31.5
--- NOTE | 2022-09-18 14:00 | BH.SGPN.GN ---
Behaviors/Verbalizations/Mental Status: []Pt alert and oriented, casually dressed and groomed. Eye contact good. Motor activity appropriate. Speech within normal limits. Affect congruent, mood euthymic. Thoughts linear, logical, no signs of hallucinations or delusions. Client Response/Progress/Benefit: []Pt receptive of session, engaged throughout. Pt shared they have been taking their medications and maintaining appointments with her outpatient mental health providers. Pt reports using opposite action, walking, socializing, and deep breathing to cope with stressors and unhelpful urges. Receptive of discussion on sitting with the uncomfortable and emotional urges. Pt contributed to the discussion of distress tolerance including benefits and pt identified personal examples of what happens if their distress tolerance is low. Pt shared to improve distress tolerance, pt is going to work on being late on purpose to help pt sit with the uncomfortable. Pt seemed to benefit from support from peers and increasing understanding of distress tolerance. Will continue IOP aftercare to reinforce healthy coping skills and maintain gains. ? Narrative Note: []
== END 2022-10-01 23:59 ==
LOC: BHOG 14:06
PROVIDERS: Referring Provider Psychiatry & Neurology Psychiatry; Visit Provider Psychiatry & Neurology Psychiatry
DX: F31.5 Bipolar disorder, current episode depressed, severe, with psychotic features (principal)
CPT/HCPCS: 90853

== ENCOUNTER 2022-10-02 08:17 | Outpatient (RCR) | payer MEDICAID, SELFPAY ==
--- NOTE | 2022-10-02 14:00 | BH.SGPN.GN ---
Behaviors/Verbalizations/Mental Status: []Client alert and oriented, casually dressed and groomed. Eye contact good. Motor activity appropriate. Speech within normal limits. Affect congruent, mood dysthymic. Thoughts linear, logical, no signs of hallucinations or delusions. Client Response/Progress/Benefit: []Receptive of session, reports feeling ?gloomy? today but has been using opposite action, communicating with supports, and self-care to keep his mental health in a positive place. Attentive during discussion of vulnerability and benefits of practicing vulnerability. Shared being vulnerable has not been easy for him as he fears doing so will lead to being felt hurt by others. Group discussed ways we avoid feeling vulnerable and how this negatively affects mental health and relationships. Appeared to benefit from group support and discussion reflecting on the positive impact vulnerability can have on mental health. Shared he could try to talk to multiple people at this family thanksgiving this weekend to practice being vulnerable in the next week. Will continue IOP aftercare to promote gains and reinforce healthy coping skills. Narrative Note: []
--- NOTE | 2022-10-09 14:00 | BH.SGPN.GN ---
Behaviors/Verbalizations/Mental Status: []Pt alert and oriented, casually dressed and groomed. Eye contact good. Motor activity appropriate. Speech within normal limits. Affect congruent, mood stressed. Thoughts linear, logical, no signs of hallucinations or delusions. Client Response/Progress/Benefit: []Pt responded well to session AEB sharing and listening attentively to others. Pt has not scheduled with an outpatient therapist yet, but he has been taking his medications and seeing psychiatry. Pt reported he has been trying to think more positively and he has a job interview today. Pt participated in group discussion defining affirmations and why they are important. Pt provided insight throughout clinician?s presentation of tips for writing personal affirmations. Pt wrote own affirmations, including ?try looking at things differently.? Pt appeared to benefit from increased knowledge of affirmation writing and increased self-awareness. Will continue aftercare treatment to reinforce healthy coping skills and promote gains. ? Narrative Note: []
--- NOTE | 2022-10-16 15:04 | BH.TPR ---
Treatment Plan Review Date of Admission:: 09/11/22 Date of Treatment Plan Review:: 10/16/22 Admitting Diagnoses:: 1. Bipolar 1 disorder, most recent episode depression, severe with psychosis (F31.5). 2. Generalized anxiety disorder. 3. ADHD. 4. Autism spectrum disorder. 5. Marijuana use disorder, sober for 2 weeks. 6. Methamphetamine and cocaine use disorder, sober for 5 years Current Diagnoses:: 1. Bipolar 1 disorder, most recent episode depression, severe with psychosis (F31.5). 2. Generalized anxiety disorder. 3. ADHD. 4. Autism spectrum disorder. 5. Marijuana use disorder, sober for 2 weeks. 6. Methamphetamine and cocaine use disorder, sober for 5 years Patient's Response to Treatment:: Pt responding well to treatment AEB pt's consistent attendance, active engagement in group discussions, follow up with psychiatry, and reporting use of skills outside treatment environment. Pt utilizes IOP aftercare to process current stressors and identify coping strategies. Status of Current Problems and Symptoms: Ongoing stressors include maintaining progress made in IOP, family stress with continuing to live with his mom, and trying to find a new job. Pt self-reports she has moments of negative thinking and depression, but it is still manageable. Problem #1 Problem Name:: Pt will maintain or decrease symptoms from IOP admission data. Status of Goals:: Obj 1 - complete with ongoing work encouraged- Pt has been able to maintain gains made in IOP as pt?s DSM-5 scores are 31% lower than they were at IOP admission. 25% decrease in depressive symptoms and 60% decrease in anxiety when compared to IOP admission scores. Obj 2 - complete with ongoing work encouraged. Pt has been consistently reporting self-care, thought challenging, and using healthy coping skills. Team Recommendations:: Recommended client continue IOP aftercare group to show maintenance of progress. Will continue to encourage client to call provided number to a different counseling agency to establish with outpatient counseling due to being on a waitlist at his current counseling agency for over 2 months.
== END 2022-11-01 23:59 ==
LOC: BHOG 08:17
PROVIDERS: Referring Provider Psychiatry & Neurology Psychiatry; Visit Provider Psychiatry & Neurology Psychiatry
DX: F31.5 Bipolar disorder, current episode depressed, severe, with psychotic features (principal); F41.1 Generalized anxiety disorder; F90.9 Attention-deficit hyperactivity disorder, unspecified type; F12.90 Cannabis use, unspecified, uncomplicated; F14.91 Cocaine use, unspecified, in remission; Z79.899 Other long term (current) drug therapy; F84.0 Autistic disorder
CPT/HCPCS: 90853

== ENCOUNTER 2022-11-04 07:25 | Outpatient (RCR) | payer MEDICAID, SELFPAY ==
--- NOTE | 2022-11-20 14:00 | BH.SGPN.GN ---
Behaviors/Verbalizations/Mental Status: []Client alert and oriented, casually dressed and groomed. Eye contact good. Motor activity appropriate. Speech within normal limits. Affect congruent, mood anxious and euthymic. Thoughts linear, logical, no signs of hallucinations or delusions. Client Response/Progress/Benefit: []Pt receptive of session, engaged throughout. Pt completed the aftercare self-reflection worksheet sharing they saw their therapist this week and psychiatrist recently, they are taking medications as prescribed, and have been using opposite action, thought challenging, and radical acceptance as healthy coping skills. Receptive of discussion on healthy habits and habit formation, as well its importance in maintaining mental health stability. Pt worked cooperatively with group to identify benefits of developing and maintaining healthy habits. Engaged in brainstorming strategies for identifying and changing unhealthy habit patterns. Reported he wants to work on challenging a current unhealthy habit of smoking when stressed with intentionally engaging in physical activity/exercise to reduce stress. Pt seemed to benefit from support from peers and increasing understanding of healthy habit formation benefits and strategies. Will continue IOP aftercare group and tx to maintain gains and prevent decompensation. Narrative Note: []
--- NOTE | 2022-11-20 15:04 | BH.DS ---
Discharge Summary - Demographics Date of Admission:: 09/11/22 Discharge Date: 11/20/22 Presenting Problems at Admission:: Client discharged from IOP tx and transitioned to IOP aftercare to maintain gains client made in IOP and to reinforce healthy coping skills. At admission to IOP aftercare, client reported experiencing mild-moderate symptoms of anxiety and depression, specifically related to circumstances involving his relationships, returning to the workforce, housing, and maintaining sobriety. Discharge Diagnoses:: 1. Bipolar 1 disorder, most recent episode depression, severe with psychosis (F31.5). 2. Generalized anxiety disorder. 3. ADHD. 4. Autism spectrum disorder. 5. Marijuana use disorder, sober for 2 weeks. 6. Methamphetamine and cocaine use disorder, sober for 5 years Reason for Discharge:: Client has accomplished his tx goals AEB his improved mood stability and self-care, as well as gains made in IOP and successfully maintaining employment. Client will transition to traditional outpatient counseling at [facility] to continue to promote use of thought challenging, distress tolerance skills, and prevent decompensation. - Treatment Progress During Treatment & Response: Client was engaged in IOP aftercare as evidenced by client's participation in group discussions and continued attendance, even during times in which he was struggling or faced with increased stress. Client missed some appointments due to illness and work, but always called to cancel which is also progress for client. Client self-reported improvements in consistently applying coping skills, prioritizing communication with supports, and continuing to push himself to engage in consistent self-care. Client has been able to maintain employment throughout aftercare as well which is a significant accomplishment for him. Client's DSM-5 scores decreased by an overall 38% since IOP admission. Client's anxiety decreased by 40%, depression decreased by 25%, and irritability by 50%. At discharge from IOP aftercare, client self-reported that he was experiencing less depression and anxiety. Additionally, client was reporting an improved mood, more positive thinking patterns, hope for his future, and more proactively identifying skills to maintain mood stability. Issues Still to be Addressed:: Client can benefit from ongoing outpatient counseling and medication management to promote gains and reinforce healthy coping skills. Client can continue to work on increasing self-confidence and challenging negative self-talk. Client additionally recommended to continue to improve distress tolerance skills and managing unexpected stressors as pt often struggles with situational based depression and anxiety, making maintenance difficult at times. Discharge Recommendations/Instructions:: Client recommended to continue seeing his outpatient therapist and psychiatrist at [facility] for medication management and ongoing individual counseling services. Discharge Handout: Complete Discharge Handout with client on aftercare options and continuity of care.
--- NOTE | 2022-11-24 15:23 | BH.DS ---
Discharge Summary - Demographics Date of Admission:: 09/11/22 Discharge Date: 11/20/22 Presenting Problems at Admission:: Pt discharged from IOP tx and transitioned to IOP aftercare to maintain gains pt made in IOP and to reinforce healthy coping skills. At admission to IOP aftercare, pt continued to report symptoms of depression, anxiety, and worries about his job. Pt also was experiencing stressors with managing emotions during a new job, challenging negative thoughts, and using healthy communication. Discharge Diagnoses:: 1. Bipolar 1 disorder, most recent episode depression, severe with psychosis (F31.5). 2. Generalized anxiety disorder. 3. ADHD. 4. Autism spectrum disorder. 5. Marijuana use disorder, sober for 2 weeks. 6. Methamphetamine and cocaine use disorder, sober for 5 years Reason for Discharge:: Pt has accomplished tx goals AEB ability to maintain mood stability and gains made in IOP. Pt's DSM-5 scores decreased by an additional 38% from IOP admission. Pt will transition to traditional outpatient counseling. - Treatment Progress During Treatment & Response: Pt responded well and made progress in IOP aftercare as evidenced by pt's participation in group discussions and self-report of consistently applying coping skills. Pt's overall DSM-5 scores decreased by 38% from IOP admission. Pt?s depression decreased by 25% since original IOP admission and pt's scores for anxiety decreased by 40% compared to original IOP scores. Additionally, at discharge pt was reporting using healthy coping skills, communicating with supports, and improved ability to manage emotions. Pt still has symptoms and stressors that need resolved and processed, but pt reports overall increased ability to cope. Pt has been able to maintain a job for over 8 weeks, which is the longest pt has had a job in [facility]. Issues Still to be Addressed:: Challenging distorted thoughts, emotion regulation, managing anger, and Discharge Handout: Complete Discharge Handout with client on aftercare options and continuity of care.
== END 2022-11-21 07:03 | disposition home or self-care (01) ==
LOC: BHOG 07:25
PROVIDERS: Referring Provider Psychiatry & Neurology Psychiatry; Visit Provider Psychiatry & Neurology Psychiatry
DX: F31.5 Bipolar disorder, current episode depressed, severe, with psychotic features (principal); F41.1 Generalized anxiety disorder; F90.9 Attention-deficit hyperactivity disorder, unspecified type; F84.0 Autistic disorder; F12.90 Cannabis use, unspecified, uncomplicated; F14.91 Cocaine use, unspecified, in remission; F11.91 Opioid use, unspecified, in remission
CPT/HCPCS: 90853

== ENCOUNTER → 2023-03-19 | Outpatient (CLI) | payer MEDICAID, SELFPAY ==
[2023-03-19 15:52] LABS: Absolute Lymphocyte Count 2.99 X10^3/uL (0.83-4.51); Absolute Neutrophil Count 7.2 X10^3/uL (2.0-7.7); Basophil# 0.06 X10^3/uL; Basophil% 0.5 % (0-1); Eosinophil# 0.38 X10^3/uL; Eosinophils% 3.3 % (0-5); Hematocrit 49.5 % (40-54); Lymphocyte # 2.99 X10^3/ul (0.83-4.51); Lymphocyte % 26.1 % (19-41); Mean Corp Hgb Conc 32.3 g/dL (32-36); Mean Corpuscular Hgb 29.9 pg (27.0-32.0); Mean Corpuscular Volume 92.5 fL (80-94); Mean Platelet Vol. 11.9 fl (6.2-12.0); Monocyte# 0.77 X10^3/uL; Monocyte% 6.7 % (0-10); NRBC Flagged by Analyzer 0 % (0-5); Platelet Count 303 K/mm3 (150-450); RBC Distribution Width CV 12.9 % (11.6-14.6); Red Blood Count 5.35 M/mm3 (4.6-6.2); White Blood Count 11.5 K/mm3 (4.4-11.0)
[2023-03-19 16:07] LABS: Vitamin B12 311 pg/mL (211-911); Vitamin D,25 Hydroxy 25.5 ng/mL
[2023-03-19 16:16] LABS: AST(SGOT) 16 U/L (15-37); Alanine Aminotransfer ALT/SGPT 38 U/L (16-61); Alkaline Phosphatase 84 U/L (45-117); Anion Gap 6 (5-15); BUN 10 mg/dL (7-18); BUN/Creat Ratio 9.1 RATIO (10-20); Chloride 105 mmol/L (98-107); Cholesterol 168 mg/dL (200); EST Glomerular Filtration Rate 84 mL/min (>60); Est Glom Filt Rate - Afr Amer 102 mL/min (>60); Globulin 3.9 g/dL (2.2-4.2); Glucose 88 mg/dL (74-106); High Density Lipoprotein 32 mg/dL; Protein, Total 7.9 g/dL (6.4-8.2); Sodium Level 139 mmol/L (136-145); Thyroid Stim Hormone (TSH) 0.78 uIU/mL (0.358-3.74); Triglycerides 214 mg/dL; Very Low Density Lipoprotein 43 mg/dL (5-40)
== END | disposition home or self-care (01) ==
LOC: BIMLAB 14:03
PROVIDERS: PCP Nurse Practitioner Family; Referring Provider Nurse Practitioner Family; Visit Provider Nurse Practitioner Family
DX: Z00.00 Encounter for general adult medical examination without abnormal findings (principal); E56.9 Vitamin deficiency, unspecified
CPT/HCPCS: 36415; 80053; 80061; 82306; 82607; 84443; 85025